=== PATIENT | female | born 1950 | race Caucasian/White ===

== ENCOUNTER 2020-03-09 09:04 | Outpatient (CLI) | payer MEDICARE, BC, SELFPAY ==
--- NOTE | 2020-03-09 11:30 | NEURO_ITS ---
Impression: # Non-diabetic complains of numbness of feet # Poor/no sensory responses. # Right posterior tibial nerve no responses. # Left posterior tibial nerve poor responses with slowing. # Absent right tibial F-wave. # Abnormal needle/EMG exam. # Findings suggestive of higher involvement in addition to right posterior tibial neuropathy. Nerve Conduction Studies Anti Sensory Summary Table Stim Site NR Peak (ms) P-T Amp (?V) Site1 Site2 Delta-P (ms) Dist (cm) Christo (m/s) Left Sup Fibular Anti Sensory (Ant Lat Mall) NO RESPONSE 14 cm NR 14 cm Ant Lat Mall 16.0 Right Sup Fibular Anti Sensory (Ant Lat Mall) NO RESPONSE 14 cm NR 14 cm Ant Lat Mall 16.0 Left Sural Anti Sensory (Lat Mall) Calf 3.9 16.4 Calf Lat Mall 3.9 16.0 41 Right Sural Anti Sensory (Lat Mall) NO RESPONSE Calf NR Calf Lat Mall 16.0 Motor Summary Table Stim Site NR Onset (ms) O-P Amp (mV) Site1 Site2 Delta-0 (ms) Dist (cm) Christo (m/s) Left Peroneal Motor (Vastus Med) Ankle 6.1 2.3 Popit Ankle 8.8 35.0 40 Popit 14.9 1.2 Right Peroneal Motor (Vastus Med) Ankle 5.9 1.2 Popit Ankle 7.9 38.0 48 Popit 13.8 1.1 Left Tibial Motor (Abd Muñoz Brev) Ankle 6.0 1.4 Knee Ankle 10.5 40.0 38 Knee 16.5 0.2 Right Tibial Motor (Abd Muñoz Brev) NO RESPONSE Ankle NR Knee NR F Wave Studies NR F-Lat (ms) L-R F-Lat (ms) Left Peroneal (Mrkrs) (EDB) 55.78 0.49 Right Peroneal (Mrkrs) (EDB) 55.29 0.49 Left Tibial (Mrkrs) (Abd Hallucis) 56.72 Right Tibial (Mrkrs) (Abd Hallucis) NO RESPONSE NR EMG Side Muscle Nerve Root Ins Act Fibs Amp Dur Recrt Comment Right AntTibialis Dp Br Fibular L4-5 Nml Nml Nml >12ms Reduced Right Gastroc Tibial S1-2 Nml Nml Nml >12ms Reduced Right Fibularis Long Sup Br Fibular L5-S1 Nml Nml Nml Nml Nml Right Flex Dig Long Tibial L5-S2 Nml Nml Nml Nml Nml Right Ext Dig Brev Dp Br Fibular L5, S1 Nml Nml Nml >12ms Reduced Left AntTibialis Dp Br Fibular L4-5 Nml Nml Nml >12ms Reduced Left Gastroc Tibial S1-2 Nml Nml Nml Nml Nml Left Fibularis Long Sup Br Fibular L5-S1 Nml Nml Nml Nml Nml Left Flex Dig Long Tibial L5-S2 Nml Nml Nml Nml Nml Left Ext Dig Brev Dp Br Fibular L5, S1 Nml Nml Nml >12ms Reduced MTDD
== END 2020-03-09 09:05 | disposition home or self-care (01) ==
PROVIDERS: PCP Internal Medicine; Visit Provider Internal Medicine
DX: M79.673 Pain in unspecified foot (principal); R94.131 Abnormal electromyogram [EMG]
CPT/HCPCS: 95886; 95910

== ENCOUNTER 2021-08-11 12:30 | Outpatient (CLI) | payer MEDICARE, BC, SELFPAY ==
--- NOTE | ~2021-08-11 | MR_ITS ---
EXAMINATION: MR lumbar spine wo con DATE: 08/11/2021 13:33 INDICATION: Lumbar radiculopathy. TECHNIQUE: Magnetic resonance imaging (MRI) of the lumbar spine was performed without intravenous con trast. Sequences included sagittal T2-weighted FSE, sagittal T2-weighted FS FSE, sagittal T1-weighted FSE, and axial T2-weighted FSE. COMPARISON: Lumbar spine MRI 10/21/2016 FINDINGS: There is 10 degrees levoscoliosis of thoracolumbar spine. There is 6 mm anterolisthesis of L4 on L5 and 3 mm retrolisthesis of L5 on S1. Vertebral body heights are normal. There is mildly decr eased disc height at L2-L3 and L3-L4. There is severely decreased disc height at L4-L5 and L5-S1 with endplate remodeling. The distal spinal cord signal intensity is normal. The conus medullaris is at L 1. The following disc levels are specifically discussed: L1-L2: The disc does not extend beyond the endplate margin. There is moderate right and severe left f acet joint osteoarthritis. There is no neural foraminal stenosis. There is no central canal stenosis. L2-L3: The disc is bulging. There is moderate right and severe left facet joint osteoarthritis. There is mild bilateral neural foraminal stenosis. There is mild central canal stenosis. L3-L4: The disc is bulging. There is severe bilateral facet joint osteoarthritis. There is mild bilat eral neural foraminal stenosis. There is mild central canal stenosis. L4-L5: The disc is bulging and has an annular fissure. There is severe bilateral facet joint osteoart hritis. There is mild right and moderate left neural foraminal stenosis. There is severe central jamie l stenosis. L5-S1: The disc is bulging and has an annular fissure. There is mild right and moderate left facet hillary int osteoarthritis. There is mild right and moderate left neural foraminal stenosis. There is mild ce ntral canal stenosis. IMPRESSION: 1. Severe lumbar spondylosis, worsened from 10/21/2016. 2. Thoracolumbar levoscoliosis. Reviewed, dictated and finalized at location A.
[2021-08-11 14:15] LABS: Basophils Percent Auto 0.3 % (0.2-1.2); Eosinophils Absolute Auto 0.1 K/mm3 (0-0.3); Eosinophils Percent Auto 1.7 % (0-4.4); Hematocrit 37.4 % (37.0-47.0); Hemoglobin 12.2 g/dL (12.0-15.0); Immature Granulocyte Absolute 0.02 K/mm3 (0.00-0.031); Immature Granulocyte Percent A 0.3 % (0-0.5); Lymphocytes Absolute Auto 1.11 K/mm3 (0.9-3.2); Lymphocytes Percent Auto 19.1 % (18.3-44.2); Mean Corpuscular HGB Conc 32.6 g/dl (32-36); Mean Corpuscular Hemoglobin 31.7 pg (26-34); Mean Corpuscular Volume 97.1 fl (80-100); Mean Platelet Volume 11.2 fl (7.4-10.4); Monocytes Absolute Auto 0.5 K/mm3 (0.1-0.6); Monocytes Percent Auto 8.3 % (2.6-8.5); Neutrophils Absolute Auto 4.1 K/mm3 (1.3-6.7); Neutrophils Percent Auto 70.3 % (45.5-73.1); Platelet Count Result 209 k/mm3 (150-375); Red Blood Count 3.85 M/mm3 (4.2-5.4); Red Cell Distribution Width 13.3 % (11.5-14.5); White Blood Count 5.8 K/mm3 (4.5-10.0)
[2021-08-11 14:24] LABS: Alanine Aminotransferase 43 U/L (6-35); Albumin Level 4.5 g/dL (3.5-5.1); Alkaline Phosphatase 84 U/L (38-126); Anion Gap 8 mmol/L (8-16); Aspartate Amino Transferase 38 U/L (14-36); Bilirubin,Total 0.2 mg/dL (0.2-1.3); Blood Urea Nitrogen 15 mg/dL (7-17); Calcium 9.1 mg/dL (8.4-10.2); Carbon Dioxide 30 mmol/L (22-30); Chloride 100 mmol/L (98-107); Cholesterol 189 mg/dL (0-200); Estimated Glomerular Filt Rate > 60; Glucose 114 mg/dL (65-110); HDL Direct 32 mg/dL; Magnesium 1.9 mg/dL (1.6-2.3); Potassium 4.1 mmol/L (3.4-5.0); Sodium 138 mmol/L (137-145); Triglycerides 263 mg/dL (<150)
[2021-08-11 14:35] LABS: LDL Cholesterol Direct 110 mg/dL
[2021-08-11 15:34] LABS: Folic Acid > 20.0 ng/mL (2.76->20)
[2021-08-11 16:18] LABS: Vitamin D 25 Hydroxy 24.6 ng/mL
== END 2021-08-11 12:31 | disposition home or self-care (01) ==
PROVIDERS: PCP Internal Medicine; Visit Provider Physician Assistant
DX: E55.9 Vitamin D deficiency, unspecified (principal); R53.83 Other fatigue; R73.9 Hyperglycemia, unspecified; R74.8 Abnormal levels of other serum enzymes; R20.0 Anesthesia of skin; R29.6 Repeated falls; R32 Unspecified urinary incontinence; M47.26 Other spondylosis with radiculopathy, lumbar region
CPT/HCPCS: 36415; 72148; 80053; 80061; 82306; 82607; 82746; 83735; 84443; 85025

== ENCOUNTER 2021-11-16 12:36 | Outpatient (CLI) | payer MEDICARE, BC, SELFPAY ==
--- NOTE | ~2021-11-16 | XR_ITS ---
XR lumbar spine min 4V 11/16/2021 13:36 Indication: Back pain Procedure: 4 views lumbar spine Comparison: 09/26/2016 Findings: There is mild levoscoliosis of the thoracolumbar spine. There is disc narrowing at all lumb ar levels. There is grade 1 degenerative spondylolisthesis at L4-5. There is advanced multilevel face t hypertrophy. No acute fracture or traumatic malalignment. There is atherosclerosis of the aorta. Impression: 1: Severe lumbar spondylosis with levoscoliosis. 2: Grade 1 degenerative spondylolisthesis at L4-5. Reviewed, dictated and finalized at location B. Impression: 1: Severe lumbar spondylosis with levoscoliosis. 2: Grade 1 degenerative spondylolisthesis at L4-5.
--- NOTE | ~2021-11-16 | XR_ITS ---
EXAMINATION: XR scoliosis survey DATE: 11/16/2021 13:36 INDICATION: Spinal stenosis, lumbar region without neurogenic claudication. TECHNIQUE: Anteroposterior and lateral views of the entire spine standing were obtained. COMPARISON: None. FINDINGS: Right femoral head stands 4 mm higher than left. There are 12 rib-bearing thoracic segments . There are 5 nonrib-bearing lumbar segments. There is 19 degrees levoscoliosis from T7 to L3 by the Mata method. There is 2 mm retrolisthesis of C5 on C6. There is severe cervical and lumbar spondylosi s and mild thoracic spondylosis. IMPRESSION: 1. 19 degrees levoscoliosis from T7 to L3. Reviewed, dictated and finalized at location A.
--- NOTE | ~2021-11-16 | CT_ITS ---
EXAMINATION: CT lumbar spine wo con DATE: 11/16/2021 13:54 INDICATION: Back pain. Spinal stenosis. TECHNIQUE: Computed tomography (CT) of the lumbar spine was performed without intravenous contrast. A utomated exposure control and iterative reconstruction technique were employed. The dose-length produ ct was 1177.23 mGy-cm. COMPARISON: Lumbar spine MRI 08/11/2021 FINDINGS: There is 13 degrees levoscoliosis of thoracolumbar spine. There is 8 mm anterolisthesis of L4 on L5 and 3 mm retrolisthesis of L5 on S1. Vertebral body heights are normal. There is mildly decr eased disc height at L2-L3 and L3-L4 and severely decreased disc height at L4-L5 and L5-S1. The follo wing disc levels are specifically discussed: L1-L2: The disc does not extend beyond the endplate margin. There is severe bilateral facet joint ost eoarthritis. There is no neural foraminal stenosis. There is no central canal stenosis. L2-L3: The disc is bulging. There is moderate right and severe left facet joint osteoarthritis. There is mild bilateral neural foraminal stenosis. There is mild central canal stenosis. L3-L4: The disc is bulging. There is severe bilateral facet joint osteoarthritis. There is mild bilat eral neural foraminal stenosis. There is mild central canal stenosis. L4-L5: The disc is bulging. There is severe bilateral facet joint osteoarthritis. There is moderate b ilateral neural foraminal stenosis. There is severe central canal stenosis. L5-S1: The disc is bulging. There is mild right and moderate left facet joint osteoarthritis. There i s mild right and moderate left neural foraminal stenosis. There is mild central canal stenosis. IMPRESSION: 1. Severe lumbar spondylosis. 2. Thoracolumbar levoscoliosis. Reviewed, dictated and finalized at location A.
== END 2021-11-16 12:37 | disposition home or self-care (01) ==
PROVIDERS: PCP Internal Medicine; Visit Provider Neurological Surgery
DX: M48.061 Spinal stenosis, lumbar region without neurogenic claudication (principal); M47.896 Other spondylosis, lumbar region
CPT/HCPCS: 36415; 72082; 72110; 72131; 82306

== ENCOUNTER 2022-01-24 12:56 | Outpatient (CLI) | payer MEDICARE, BC, SELFPAY ==
--- NOTE | ~2022-01-24 | DEXA_ITS ---
Bone Density Report Name: NAOMIE GIRON Age: 71 Sex: Female Ethnicity: White Date of : 1950 Indication: postmenopausal; screening for osteoporosis; hysterectomy; rheumatoid arthritis; Referring Provider: SOL FLORIAN Study: Bone densitometry was performed. Exam Date: January 24, 2022 Accession number: [id number] Bone Density: Region BMD T-score Z-score Classification AP Spine(L1-L4) 1.392 3.1 5.4 Normal Femoral Neck (Left) 0.867 0.2 2.1 Normal Total Hip (Left) 1.161 1.8 3.5 Normal Femoral Neck (Right) 0.861 0.1 2.1 Normal Total Hip (Right) 1.069 1.0 2.7 Normal Total Hip Mean 1.115 1.4 3.1 Normal World Health Organization criteria for BMD impression classify patients as: Normal (T-score at or above -1.0), Osteopenia (T-score between -1.0 and -2.5), or Osteoporosis (T-score at or below -2.5). 10-year Fracture Risk: FRAX not reported because: All T-scores for Spine Total, Hip Total, Femoral Neck at or above -1.0 Clinical Information Provided by Patient: Has rheumatoid arthritis Has the following medical conditions: Hysterectomy, copd Patient maximum height was 62 Menopause Age: 32 No regular weight bearing exercise Onset of menses at age 12 Number of children 3 Impression: The patient has normal bone mass. Discussion: LOW RISK OF FRACTURE; BONE DENSITY IS WELL ABOVE THE MINIMUM DESIRABLE LEVEL AND ABOVE AVERAGE FOR AGE AND SEX AT ALL SKELETAL SITES TESTED. This person's bone density is above expected limits for age and sex. This is rarely clinically significant, but should be pursued if there are significant musculoskeletal complaints. The patient should follow a healthful lifestyle (good nutrition with adequate calcium and vitamin D, and appropriate weight-bearing exercise). Follow-Up: Consider repeating this study in 5 years or sooner if there is some new clinical indication. Reported by: [facility] on 01/24/2022 1:20:00 PM. Reviewed, dictated and finalized at location AAnthony KOHLI
== END 2022-01-24 12:57 | disposition home or self-care (01) ==
LOC: ANHIMG 12:59
PROVIDERS: PCP Internal Medicine; Visit Provider Neurological Surgery
DX: Z78.0 Asymptomatic menopausal state (principal)
CPT/HCPCS: 77080

== ENCOUNTER 2022-07-12 10:02 | Outpatient (CLI) | payer MEDICARE, BC, SELFPAY ==
--- NOTE | ~2022-07-12 | NM_ITS ---
EXAMINATION: NM vita stress w perfusion DATE: 07/12/2022 12:54 INDICATION: Abnormal electrocardiogram. Preop. TECHNIQUE: Rest images were obtained following intravenous administration of 9.4 mCi Tc99m tetrofosmi n (Myoview). The patient was infused intravenously with Lexiscan (regadenoson). Then, 29.4 mCi Tc99m tetrofosmin (Myoview) was administered intravenously, and stress images were obtained. Data was recon structed into short axis and horizontal and vertical long axis SPECT images. Gated SPECT images were also obtained. COMPARISON: None. FINDINGS: There is no definite reversible or fixed perfusion abnormality to suggest ischemia or infar ction. There is no segmental wall motion abnormality. Left ventricular ejection fraction measures > 70%. IMPRESSION: 1. No definite ischemia or infarct. 2. Normal left ventricular ejection fraction measuring > 70%. Reviewed, dictated and finalized at location A.
--- NOTE | 2022-07-12 10:39 | EST_ITS ---
Patient Info Name: Divina Griffiths Age: 72 years : 1950 Gender: Female Ht: 62 in Wt: 211 lbs BSA: 2.10 m2 HR: 59 bpm BP: 157 / 67 mmHg Heart Rhythm: Sinus Rhythm Exam Date: 07/12/2022 11:29 AM Exam Location: [facility] Stress Patient Status: Outpatient Admit Date: 07/12/2022 Staff Ordering Physician: Sandip Brown DO Attending Provider: Favian Coffman MD Exercise Technologist: Faye Larson CT Exam Type: CA stress vita w NM Study Info Indications Z01.810 - Encounter for preprocedural cardiovascular examination A regadenoson stress test was performed. Summary 1. 1. Negative lexiscan stress test for ischemic ST changes by ECG criteria. 2. 2. Baseline hypertension. 3. 3. Nuclear scan to follow and will be reported separately. Please correlate with it. 4. 4. Patient informed of the above results. Protocol: Lexiscan Stress ECG Details Stage: REST Duration (min): 1 min : 17 sec HR (bpm): 60 SBP (mmHg): 157 DBP (mmHg): 67 Stage: REST Duration (min): 17 min : 22 sec HR (bpm): 60 SBP (mmHg): 157 DBP (mmHg): 67 Stage: STAGE 1 Duration (min): 1 min : 0 sec HR (bpm): 77 SBP (mmHg): 146 DBP (mmHg): 75 Stage: RECOVERY Duration (min): 1 min : 0 sec HR (bpm): 87 SBP (mmHg): 146 DBP (mmHg): 75 Stage: RECOVERY Duration (min): 2 min : 0 sec HR (bpm): 86 SBP (mmHg): 146 DBP (mmHg): 75 Stage: RECOVERY Duration (min): 3 min : 0 sec HR (bpm): 81 SBP (mmHg): 176 DBP (mmHg): 71 Stage: RECOVERY Duration (min): 3 min : 26 sec HR (bpm): 80 SBP (mmHg): 176 DBP (mmHg): 71 Rest HR: 60 bpm Peak HR: 88 bpm Rest Sys BP: 157 mmHg Peak Sys BP: 176 mmHg Max Pred HR: 147 bpm % Max Pred HR: 60 % Target HR: 125 bpm Max RPP: 15,488 bpm*mmHg Termination Reason: Completed protocol Cardiac Symptoms: Shortness of breath Total Time: 1 min : 0 sec Rest Caldwell BP: 67 mmHg Peak Caldwell BP: 71 mmHg Total Dose: 0.4 mg Resting ECG Sinus rhythm, RBBB. Stress ECG No ST changes. Arrhythmias None. Report Signatures
--- NOTE | 2022-07-12 11:53 | ECG_ITS ---
Measurements Intervals [place] Rate: 64 P: 7 PA: 200 QRS: 45 QRSD: 129 T: 42 QT: 393 QTc: 406 Interpretive Statements SINUS RHYTHM BASELINE ARTIFACT LOW-VOLTAGE QRS IN PRECORDIAL LEADS RIGHT BUNDLE BRANCH BLOCK ABNORMAL ECG NO PREVIOUS ECG AVAILABLE FOR COMPARISON Electronically Signed On 07-13-2022 16:22:18 CDT by Olman Hirsch M.D.
[2022-07-12 13:19] LABS: Basophils Percent Auto 0.5 % (0.2-1.2); Eosinophils Absolute Auto 0.1 K/mm3 (0-0.3); Eosinophils Percent Auto 0.8 % (0-4.4); Hematocrit 39.6 % (37.0-47.0); Hemoglobin 12.7 g/dL (12.0-15.0); Immature Granulocyte Absolute 0.03 K/mm3 (0.00-0.031); Immature Granulocyte Percent A 0.5 % (0-0.5); Lymphocytes Absolute Auto 1.26 K/mm3 (0.9-3.2); Lymphocytes Percent Auto 21.1 % (18.3-44.2); Mean Corpuscular HGB Conc 32.1 g/dl (32-36); Mean Corpuscular Hemoglobin 31.8 pg (26-34); Mean Platelet Volume 10.7 fl (7.4-10.4); Monocytes Absolute Auto 0.4 K/mm3 (0.1-0.6); Monocytes Percent Auto 7.4 % (2.6-8.5); Neutrophils Absolute Auto 4.2 K/mm3 (1.3-6.7); Neutrophils Percent Auto 69.7 % (45.5-73.1); Platelet Count Result 204 k/mm3 (150-375); Red Cell Distribution Width 12.3 % (11.5-14.5)
[2022-07-12 13:29] LABS: Anion Gap 9 mmol/L (8-16); Blood Urea Nitrogen 20 mg/dL (7-17); Calcium 9.2 mg/dL (8.4-10.2); Carbon Dioxide 27 mmol/L (22-30); Chloride 103 mmol/L (98-107); Estimated Glomerular Filt Rate > 60; Glucose 117 mg/dL (65-110); Potassium 4.4 mmol/L (3.4-5.0); Sodium 139 mmol/L (137-145)
== END 2022-07-12 10:03 | disposition home or self-care (01) ==
PROVIDERS: PCP Internal Medicine; Visit Provider Neurological Surgery
DX: Z01.810 Encounter for preprocedural cardiovascular examination (principal); M43.16 Spondylolisthesis, lumbar region; M48.062 Spinal stenosis, lumbar region with neurogenic claudication; J44.9 Chronic obstructive pulmonary disease, unspecified; R82.90 Unspecified abnormal findings in urine; I45.10 Unspecified right bundle-branch block; I10 Essential (primary) hypertension; Z79.1 Long term (current) use of non-steroidal anti-inflammatories (NSAID)
CPT/HCPCS: 36415; 78452; 80048; 85025; 86850; 86900; 86901; 93005; 93017; A9502; J2785

== ENCOUNTER 2022-07-27 12:59 | Outpatient (CLI) | payer MEDICARE, BC, SELFPAY ==
[2022-07-27 13:46] LABS: Appearance Urine Turbid (Clear); Bacteria Urine 4+ /hpf; Bilirubin Urine Negative (Negative); Blood Urine 1+ (Negative); Color Urine Yellow (Yellow); Glucose Urine UA Negative (Negative); Ketones Urine Negative (Negative); Leukocyte Esterase Ur 3+ LEU/UL (Negative); Nitrate Urine Positive (Negative); Non Pathogenic Casts 0-2; Protein Urine Negative (Negative); RBC Urine 0-2 /hpf (0-2); Specific Grav Ur 1.012 (1.001-1.035); Squamous Epithelial Cell Urine Occasional /hpf (Few); Urobilinogen Urine 0.2 mg/dL (<2.0); WBC Urine >100 /hpf; pH Urine 5.5 (5.0-9.0)
[2022-07-27 13:48] LABS: Add Urine Microscopic? YES; Prothrombin Time 13.3 Seconds (11.1-14.7)
[2022-07-27 13:49] LABS: Partial Thromboplastin Time 29.9 SECONDS (22.3-36.8)
== END 2022-07-27 13:00 | disposition home or self-care (01) ==
LOC: ANHSURGERY 13:04
PROVIDERS: PCP Internal Medicine; Visit Provider Neurological Surgery
DX: M48.062 Spinal stenosis, lumbar region with neurogenic claudication (principal); Z01.818 Encounter for other preprocedural examination
CPT/HCPCS: 36415; 81001; 85610; 85730; 86850; 86900; 86901; 87077; 87086; 87186

== ENCOUNTER 2022-07-31 12:44 | Inpatient (IN) | payer MEDICARE, BC, SELFPAY ==
[2022-07-25 13:29] VITALS: BMI 38.8
--- NOTE | 2022-07-25 13:46 | PC.NURSE ---
PRE-OP INSTRUCTIONS, PLEASE READ CAREFULLY Report to the Outpatient Waiting Room, entrance under the green pavilion located off [facility], at time _0600_ on date _07/31/22_. Planned Procedure Time: _0800_. PACK A SMALL OVERNIGHT BAG AND LEAVE IN THE CAR Time changes happen often and if your time is changed the preop area will call you the afternoon before. - You and your visitor will be asked to self-screen and do not enter if you have any COVID symptoms. - A mask is optional within the hospital at this time. -VISITING HOURS 8AM-8PM Patients may have clear liquids (water, carbonated beverages, clear teas, apple juice) until 3 hours prior to surgery (0500 AM) with a maximum of 20 ounces. - No food from midnight until time of surgery Take the following medications with a SIP of water the morning of surgery: _VENLAFAXINE, PAIN PILL IF NEEDED_ DO NOT STOP ANY OF YOUR OTHER PRESCRIPTION MEDICATIONS PRIOR TO SURGERY ?EXCEPT THE FOLLOWING Medications to discontinue _PATIENT STATES STOPPING ASPIRIN & IBUPROFEN 07/21/[address] TYLER'S INSTRUCTIONS__ Medications to discontinue per ANESTHESIA - _BIO-X4 3 DAYS PRIOR TO SURGERY, Date to take last dose 07/27/22_ Please no make-up, nail norwegian, hairspray, perfume, deodorant, or body powder the day of surgery. No jewelry (including any body piercings) or valuables the day of surgery, leave them at home. Please take a shower or bath the night before, or the morning of, surgery with an antibacterial soap. Wear comfortable, loose fitting clothing. - Jewelry must be removed prior to entering the operating room. Rings and piercings that are not removed may be cut off. - The hospital will not accept responsibility for valuables. - Please leave all valuables, including medications, at home the day of surgery. If you are going home after surgery, a licensed lead driver must drive you home. - NO public transportation without another adult if you receive anesthesia. - We recommend that an adult stay with you for 24 hours following discharge. - We also recommend that you do not drive, make important decision, drink alcoholic beverages, or take any drugs that were not prescribed by your health care provider for at least 24 hours after your discharge time. Follow any additional instructions given to you from your surgeon. If you or anyone in your household have experienced Covid symptoms in the past week, please notify your surgeon or the nurse liaison at the phone number below for possible testing. Telephone instructions given to _PATIENT_and asked if any additional questions and then verbalized understanding. Patient advised to call surgeon office or pre surgery nurse liaison [phone] if any additional questions.
[2022-07-31] VITALS (10 sets, daily range): BP systolic 102–149; BP diastolic 40–63; PULSE 75–104; RESP 12–18; TEMP 36.1–36.7; O2SAT 91–100
--- NOTE | ~2022-07-31 | XR_ITS ---
EXAMINATION: XR fluoroscopy no charge DATE: 07/31/2022 11:44 INDICATION: L4-L5 posterior lumbar fusion and L3-L4 laminectomy TECHNIQUE: 2 fluoroscopic images of the lower lumbar spine were obtained during procedure performed brinda Coffman. Radiologist was not present for the imaging or procedure. The amount of fluoroscopy t dory used during this procedure was 0.1 minutes. COMPARISON: CT dated 11/13/2021 FINDINGS: Again seen is grade 1 anterolisthesis L4 on L5 with moderate to severe disc height loss with vacuum p henomena at both L4-L5 and L5-S1 on the initial image. Lucent likely surgical wound with tissue retra ctors, lap sponge markers and a metallic probe projects posterior to the lower lumbar spine. Subseque nt image demonstrates L4-L5 discectomy with partial reduction of the anterolisthesis of L4 on L5 and placement of an interbody bone graft cage. There is also been posterior spinal fusion with vertical r od and pedicle screw fixation spanning L4-L5. There is penetration of the region of the spinous proce sses resulting from the surgical wound and unable to assess for the reported associated laminectomy. IMPRESSION: 1. Fluoroscopy utilized during combined instrumented L4-L5 anterior and posterior spinal fusion. See procedure note for further detail. Reviewed, dictated and finalized at location L. IMPRESSION: 1. Fluoroscopy utilized during combined instrumented L4-L5 anterior and posteri or spinal fusion. See procedure note for further detail.
--- NOTE | 2022-07-31 07:04 | WPDANESEPPF ---
Anes - Initial Pre Proc Eval Procedure: Operation Date: 07/31/22 08:00 Proposed Procedures p L4-5 Posterior Lateral Instrumentation Fusion, L3-4 Laminectomy - Favian Coffman MD Date/Time: 07/31/22 07:04 Surgeon: Favian Coffman MD Pre Op Diagnosis: spondylolisthesis L4-5, L3-4 stenosis Patient Data Age: 72 Gender: F Height: 1.57 m Weight: 96.36 kg Allergies Allergy/AdvReac Type Severity Reaction Status Date / Time levocetirizine Allergy Intermediate pain in Verified 07/31/22 06:26 head Sulfa (Sulfonamide Allergy Mild hives Verified 07/31/22 06:26 Antibiotics) sulfanilamide Allergy Mild Hives Verified 07/31/22 06:26 Home Medications Medication Instructions Recorded Confirmed Type aspirin 81 mg tablet,delayed 81 mg PO DAILY 05/12/19 07/25/22 History release (Adult Low Dose Aspirin) fluticasone propionate 50 2 spray intranasal DAILY PRN nasal 02/02/20 07/25/22 Rx mcg/actuation nasal congestion #15.8 mL spray,suspension cyclobenzaprine 10 mg tablet 10 mg PO .hs PRN muscle spasm #30 08/23/21 07/25/22 Rx tabs hydrocodone 5 mg-acetaminophen 325 1 tablet PO Q12H PRN pain #46 tabs 02/06/22 07/31/22 Rx mg tablet bisoprolol 10 1 tablet PO DAILY #90 tabs 04/30/22 07/25/22 Rx mg-hydrochlorothiazide 6.25 mg tablet lisinopril 40 mg tablet 40 mg PO DAILY #90 tabs 04/30/22 07/31/22 Rx venlafaxine 150 mg tablet,extended 150 mg PO DAILY #30 tabs 04/30/22 07/31/22 Rx release 24 hr ibuprofen 800 mg tablet 800 mg PO BID PRN pain #90 tabs 05/16/22 07/25/22 Rx folic acid 1 mg tablet 1 mg PO DAILY #90 tabs 06/24/22 07/31/22 Rx gabapentin 300 mg capsule 300 mg PO .hs #90 caps 07/10/22 07/31/22 Rx Bio-X4 1 cap DAILY 07/25/22 History omeprazole magnesium 20 mg 20 mg PO BID PRN ACID REFLEX 07/25/22 07/31/22 History capsule,delayed release sulfamethoxazole 400 1 tablet PO BID #10 tabs 07/30/22 Rx mg-trimethoprim 80 mg tablet (Bactrim) Patient hx anesthesia problems: post op nausea/vomiting Family hx anesthesia problems: post op nausea/vomiting Results Review: All pre-operative results and documents have been reviewed as part of the pre-operative evaluation. COUNT INCLUDES THE [facility] Past Medical History Medical History Arthritis of both knees Chronic midline low back pain with right-sided sciatica Dizziness DUNNE (dyspnea on exertion) Essential (primary) hypertension Folate deficiency Other allergic rhinitis Primary osteoarthritis of both knees Primary osteoarthritis of left knee Surgical History Surgical History H/O hemorrhoidectomy H/O pelvic surgery H/O rhinoplasty H/O: hysterectomy History of back surgery Hx of appendectomy Hx of cholecystectomy Hx of tonsillectomy S/P adenoidectomy Family History Family History Father Hypertension Family history of Alzheimer's disease Patient's father is Mother Hypertension Patient's mother is in good health Sibling Hypertension Asthma Patient's brother is in good health Other Cerebrovascular accident Family history of allergic disorder Family history of arthritis Social History Social History Smoking packs per day: 1.5 Smoking cigarettes per day: 30.0 Years smoked: 50 Smoking pack-years: 75.00 Smoking status: Former smoker Tobacco type: cigarettes Second hand tobacco smoke exposure: No Smoking end date: 04/01/15 Alcohol intake: never Substance use: never Substance use type: does not use Lack of Transportation: No Lack of Food: Never True Current Housing: I Have Housing Concerned About Future Housing: No Difficulty Paying Gas/Electric Bills: No Difficulty Paying for Meds: No Currently Unemployed: No Education: High School Diplo
[2022-07-31] MEDS: LACTATED RINGERS 1,000 ML 30 ML IV CONT ×2 (07:07→11:46)
[2022-07-31] MEDS: ONDANSETRON INJ 4 MG/2 ML VIAL IV PUSH ×3 (07:15→20:49)
--- NOTE | 2022-07-31 07:41 | PM.IMHP ---
H&P: HPI History of Present Illness Date/Time: 07/31/22 07:41 Chief Complaint: Back and leg pain Narrative: Divina is a 72-year-old female with back and leg pain related to stenosis and spondylolisthesis presents for L4-5 posterior lumbar interbody fusion L3-4 laminectomy. She has not changed appreciably since we last saw her. She does not have specific muscle group weakness or dermatomal numbness. She is not having bowel or bladder difficulty. Review of Systems Review of Systems: Patient denies shortness of breath, cough, fever, chills, nausea, vomiting, weight loss, weight gain, chest pain, dysuria. She has back and leg pain as above. Review of systems otherwise negative on 12 systems except as noted elsewhere. [facility] Past Medical History Medical History Arthritis of both knees Chronic midline low back pain with right-sided sciatica Dizziness DUNNE (dyspnea on exertion) Essential (primary) hypertension Folate deficiency Other allergic rhinitis Primary osteoarthritis of both knees Primary osteoarthritis of left knee Surgical History Surgical History H/O hemorrhoidectomy H/O pelvic surgery H/O rhinoplasty H/O: hysterectomy History of back surgery Hx of appendectomy Hx of cholecystectomy Hx of tonsillectomy S/P adenoidectomy Family History Family History Father Hypertension Family history of Alzheimer's disease Patient's father is Mother Hypertension Patient's mother is in good health Sibling Hypertension Asthma Patient's brother is in good health Other Cerebrovascular accident Family history of allergic disorder Family history of arthritis Social History Social History Smoking packs per day: 1.5 Smoking cigarettes per day: 30.0 Years smoked: 50 Smoking pack-years: 75.00 Smoking status: Former smoker Tobacco type: cigarettes Second hand tobacco smoke exposure: No Smoking end date: 04/01/15 Alcohol intake: never Substance use: never Substance use type: does not use Lack of Transportation: No Lack of Food: Never True Current Housing: I Have Housing Concerned About Future Housing: No Difficulty Paying Gas/Electric Bills: No Difficulty Paying for Meds: No Currently Unemployed: No Education: High School Diploma/GED Difficulty w/ Childcare or Family Care: No Living arrangements: with family Spiritual care concerns: No Meds Home Medications and Allergies Home Medications Medication Instructions Recorded Confirmed Type aspirin 81 mg tablet,delayed 81 mg PO DAILY 05/12/19 07/25/22 History release (Adult Low Dose Aspirin) fluticasone propionate 50 2 spray intranasal DAILY PRN nasal 02/02/20 07/25/22 Rx mcg/actuation nasal congestion #15.8 mL spray,suspension cyclobenzaprine 10 mg tablet 10 mg PO .hs PRN muscle spasm #30 08/23/21 07/25/22 Rx tabs hydrocodone 5 mg-acetaminophen 325 1 tablet PO Q12H PRN pain #46 tabs 02/06/22 07/31/22 Rx mg tablet bisoprolol 10 1 tablet PO DAILY #90 tabs 04/30/22 07/25/22 Rx mg-hydrochlorothiazide 6.25 mg tablet lisinopril 40 mg tablet 40 mg PO DAILY #90 tabs 04/30/22 07/31/22 Rx venlafaxine 150 mg tablet,extended 150 mg PO DAILY #30 tabs 04/30/22 07/31/22 Rx release 24 hr ibuprofen 800 mg tablet 800 mg PO BID PRN pain #90 tabs 05/16/22 07/25/22 Rx folic acid 1 mg tablet 1 mg PO DAILY #90 tabs 06/24/22 07/31/22 Rx gabapentin 300 mg capsule 300 mg PO .hs #90 caps 07/10/22 07/31/22 Rx Bio-X4 1 cap DAILY 07/25/22 History omeprazole magnesium 20 mg 20 mg PO BID PRN ACID REFLEX 07/25/22 07/31/22 History capsule,delayed release sulfamethoxazole 400 1 tablet PO BID #10 tabs 07/30/22 Rx mg-trimethoprim 80 mg tablet (Bactrim)
--- NOTE | 2022-07-31 07:46 | WPDHPUPDATE1 ---
History and Physical Update Update Date/Time: 07/31/22 07:46 History and Physical has been reviewed, including an updated exam of the patient. There are NO changes in the patient's condition. Risks, benefits, and alternatives have been discussed and questions answered. Patient agrees to proceed with procedure.
[2022-07-31] MEDS: ceFAZolin 2 GM/D5W 50 ML 2 GM/50 ML BAG IVPB (08:25)
[2022-07-31] MEDS: LIDO 1%/EPINEPHRINE 1:100,000 50 ML VIAL 10 ML INFILTRATE (09:19)
--- NOTE | 2022-07-31 11:44 | SUR.OPER ---
150mL of clear yellow urine drained from fregoso catheter in OR
--- NOTE | 2022-07-31 12:56 | ADMGEN ---
This patient, Divina Griffiths, was admitted to Medical Room 253-01. Patient/family oriented to hospital policies and general routines including ID bracelet, bed and alarms, visiting hours, pain management, procedures, bathroom and other care routines, personal items, smoking policy, room service/diet, and visiting hours. Information on how to activate the Rapid Response Team has been discussed. Patient/Family are encouraged to report perceived risks to care and to ask questions if they do not understand what they are told or what they should do.
[2022-07-31] MEDS: HYDROmorphone HCL INJ (*CRX) 1 MG/ML SYR 0.5 MG IV PUSH (15:18)
[2022-07-31] MEDS: ceFAZolin 1 GM/NS 50 ML 1 GM/50 ML BAG IVPB ×2 (16:00→23:00)
[2022-07-31] MEDS: GABAPENTIN 300 MG CAPSULE PO (20:53)
[2022-07-31] MEDS: DOCUSATE SODIUM 100 MG CAPSULE PO (20:53)
[2022-07-31] MEDS: CYCLOBENZAPRINE HCL 10 MG TABLET PO (20:53)
[2022-07-31] MEDS: HYDROcodone/acetaminophen (*CRX) 5-325 MG TABLET 1 TAB PO (20:53)
[2022-08-01] MEDS: HYDROcodone/acetaminophen (*CRX) 10-325 MG TABLET 1 TAB PO ×2 (05:09→12:25)
[2022-08-01 06:30] VITALS: BP 114/43; PULSE 104; RESP 18; TEMP 36.5; O2SAT 96
[2022-08-01] MEDS: DOCUSATE SODIUM 100 MG CAPSULE PO ×2 (08:22→20:40)
[2022-08-01] MEDS: PANTOPRAZOLE 40 MG TABLET PO (08:23)
[2022-08-01] MEDS: FOLIC ACID 1 MG TABLET PO (08:23)
[2022-08-01] MEDS: ceFAZolin 1 GM/NS 50 ML 1 GM/50 ML BAG IVPB ×3 (08:23→23:11)
[2022-08-01 08:28] VITALS: BP 131/56; PULSE 99; RESP 16; O2SAT 96
[2022-08-01 08:29] VITALS: PULSE 99
[2022-08-01] MEDS: hydroCHLOROthiazide 6.25 MG TABLET PO (08:29)
[2022-08-01] MEDS: bisoproloL fumarate 5 MG TABLET 10 MG PO (08:29)
[2022-08-01] MEDS: lisinopriL 20 MG TABLET 40 MG PO (08:29)
[2022-08-01] MEDS: VENLAFAXINE HCL XR 75 MG CAP.ER.24H 150 MG PO (08:30)
[2022-08-01 09:33] VITALS: BP 108/46; PULSE 80; RESP 18; TEMP 36.1; O2SAT 96
--- NOTE | 2022-08-01 12:17 | WPDANESPN ---
Anes - Prog Note Post-Op Date/Time: 08/01/22 12:17 Vital Signs: Last Vital Signs Temp 36.1 C L 08/01/22 09:33 Pulse 80 08/01/22 09:33 Resp 18 08/01/22 09:33 BP 108/46 L 08/01/22 09:33 Pulse Ox 96 08/01/22 09:33 O2 Del Method Room Air 08/01/22 08:30 O2 Flow Rate 6 07/31/22 12:00 Pain Score (VAS): 0 I/O: Intake & Output 07/31/22 08/01/22 08/01/22 23:59 07:59 15:59 Intake Total 640 550 530 Output Total 350 1200 Balance 290 -650 530 Patient Feedback: Patient satisfied with anesthetic care.
[2022-08-01 13:13] VITALS: BP 118/46; PULSE 91; RESP 18; TEMP 36.2; O2SAT 98
[2022-08-01] MEDS: oxyCODONE/ACETAMINOPHEN (*CRX) 10-325 MG TABLET 1 TAB PO ×2 (17:00→20:39)
[2022-08-01] MEDS: CYCLOBENZAPRINE HCL 10 MG TABLET PO (17:07)
[2022-08-01 19:51] VITALS: BP 110/50; PULSE 80; RESP 16; TEMP 36.5; O2SAT 95
[2022-08-01] MEDS: GABAPENTIN 300 MG CAPSULE PO (20:40)
[2022-08-01] MEDS: MELATONIN 5 MG TABLET PO (21:02)
[2022-08-02 00:10] VITALS: BP 99/50; PULSE 81; RESP 16; TEMP 36.6; O2SAT 93
[2022-08-02 05:34] VITALS: BP 128/54; PULSE 82; RESP 16; TEMP 36.7; O2SAT 97
[2022-08-02] MEDS: oxyCODONE/ACETAMINOPHEN (*CRX) 10-325 MG TABLET 1 TAB PO ×2 (06:24→17:26)
[2022-08-02] MEDS: ceFAZolin 1 GM/NS 50 ML 1 GM/50 ML BAG IVPB ×3 (08:14→23:54)
[2022-08-02 08:16] VITALS: PULSE 78
[2022-08-02] MEDS: bisoproloL fumarate 5 MG TABLET 10 MG PO (08:16)
[2022-08-02] MEDS: VENLAFAXINE HCL XR 75 MG CAP.ER.24H 150 MG PO (08:19)
[2022-08-02] MEDS: FOLIC ACID 1 MG TABLET PO (08:19)
[2022-08-02] MEDS: lisinopriL 20 MG TABLET 40 MG PO (08:19)
[2022-08-02] MEDS: hydroCHLOROthiazide 6.25 MG TABLET PO (08:20)
[2022-08-02] MEDS: DOCUSATE SODIUM 100 MG CAPSULE PO ×2 (08:23→20:27)
--- NOTE | 2022-08-02 08:46 | PCPTNOTE ---
Attempted to see patient for PT, however patient was eating breakfast.
[2022-08-02] MEDS: polyethylene glycoL 3350 17 GM POWD.PACK PO (10:50)
--- NOTE | 2022-08-02 11:03 | W.PM.PROC2 ---
Procedure Note - Detailed Date of Procedure 08/02/22 Pre-op Diagnosis spondylolisthesis L4-5, L3-4 stenosis Post-op Diagnosis Same Procedure Performed L4-5 complete laminectomy and bilateral facetectomy, L4-5 complete diskectomy and interbody arthrodesis utilizing titanium interbody device, L4-5 pedicle screw instrumentation, L3-4 laminectomy Surgeon Favian Coffman MD Anesthesia General Description of Procedure The patient was brought to the operating room in the supine position, was sedated, intubated and placed under general anesthesia in routine fashion. She was then turned into the prone position on Isaac frame. The of operation on her back was examined, marked for incision, prepped and draped in routine sterile fashion. Incision was marked over the L3 through 5 spinous processes in the midline. This area was injected with 0.5% lidocaine with [id number] epinephrine. Intravenous antibiotics given prior to incision. Incision was made with a 10 blade scalpel down to the lumbodorsal fascia. A subperiosteal dissection of the muscle soft tissue within spinous process and lamina at L4-5 and L3-4 was performed with a subperiosteal elevator and Bovie cautery. A verifying x-rays obtained to verify the level of operation. Spinous processes at L3 and L4 were removed with a Fantasma rongeur. Kerrison punches, curved curette and a Leksell rongeur were used to remove lamina in the midline into the soft contents of the canal were encountered. L3-4 additional bone and ligament in the lateral recess was removed after a careful dissection away from the dura using a curved curette. Kerrison punches removed the tissue. Midas-Douglas drill was used to resect the pars bilaterally at L4. The inferior articular process and facet of L4 could then be removed bilaterally. These +spinous processes were stripped free of soft tissue and morselized for later use as interbody autograft. Kerrison punches and curved curettes were used to define a plane with the dura and removed bone and ligament flush with the pedicle and through the foramina widely decompressing the exiting nerve roots. Dural thinning dorsally was noted at this part of the operation and was closed primarily using a 4-0 Nurolon lxcezk-ol-yhynj suture and a small fat graft. No more and leaking was noted during the entire case. With the thecal sac retracted and protected the disc space was entered on the left using a 11 blade scalpel. Scrapers very sizes, curettes of various configurations, pituitary rongeur and a rasp were used to remove as much cartilaginous endplate and disc material as possible down to bleeding cortical flat surfaces on the opposing bones. The disc space was incised an appropriately-sized titanium interbody device was chosen and filled with local autograft bone in the disc space was likewise filled with local autograft bone medially and anteriorly. The interbody device was then placed with 2-3 mm countersink within the disc space. Pedicle screw instrumentation was performed at L4 and L5 by observing and palpating the pedicle while a hole was made in superior to the process above the pedicle using Midas Douglas drill. The pedicle was then cannulated with a pedicle probe, checked for continuity with the ball probe, tapped with a 5.5 mm tap and a 6.5 x 50 mm screw was placed into each pedicle on each side except on the right at L5 were a 45 mm screw was placed. Rods placed in the screw heads on either side and secured in position using the caps that purpose. These were definitively tightened with a torque and anti torque device. A verifying x-rays obtained to verify good position of the instrumentation which was confirmed. The wound was then Bovie gated with bacitracin irrigation all bleeding stopped with bipolar Bovie cautery and Gelfoam thrombin powder. The wound was then closed in layered fashion with 2-0 Vicryl interrupted sutures in the lumbodorsal fascia and Cassandra's layer. 3-0 Vi
--- NOTE | 2022-08-02 11:37 | WPDNEUROSGPN ---
Progress Note: A&P Assessment and Plan (1) Lumbar stenosis with neurogenic claudication: Code(s): M48.062 - Spinal stenosis, lumbar region with neurogenic claudication Status: Acute (2) Spondylolisthesis at L4-L5 level: Code(s): M43.16 - Spondylolisthesis, lumbar region Status: Acute Plan Divina is progressing status post L4-5 posterior lumbar interbody fusion L3-4 laminectomy. She needs more time with physical and occupational therapy before being sent home. She will work on independent transfers today and pain control. Subjective Date/time seen: 08/02/22 11:37 Interval history: Divina is postop day 2 status post L4-5 posterior lumbar interbody fusion L3-4 laminectomy. She is doing well. She has pain in her back and has some difficulty with transfers but is ambulating once she is able to sit up. She is able to rise from a sitting to a standing position. Getting up out of the bed is still difficult for her. She does not report any specific muscle group weakness or dermatomal numbness or any new bowel or bladder issues. Exam Narrative: Strength is 5/5 in all muscle groups of the bilateral lower extremities. Sensation is intact to light touch throughout the lower extremities. Her wound is clean, dry and intact. Objective Data Vital Signs Vital Signs: Vital Signs - 24 hr 08/01/22 13:13 08/01/22 19:51 08/01/22 20:00 Temperature 97.1 F L 97.7 F Pulse Rate 91 80 Respiratory Rate 18 16 Blood Pressure 118/46 L 110/50 L Pulse Oximetry 98 95 Oxygen Delivery Room Air 08/02/22 00:10 08/02/22 05:34 08/02/22 08:16 Temperature 97.9 F 98.0 F Pulse Rate 81 82 78 Respiratory Rate 16 16 Blood Pressure 99/50 L 128/54 L Pulse Oximetry 93 97 Oxygen Delivery 08/02/22 08:23 Temperature Pulse Rate Respiratory Rate Blood Pressure Pulse Oximetry Oxygen Delivery Room Air Intake/Output Intake/Output: Intake & Output 07/30/22 07/31/22 08/01/22 08/02/22 23:59 23:59 23:59 23:59 Intake Total 790 2210 2530 Output Total 480 1200 Balance 310 1010 2530 Meds/Results Medications: Active Medications Generic Name Dose Route Start Last Admin Trade Name Freq PRN Reason Stop Dose Admin Al Hydrox/Mg Hydrox/Simethicone 20 ml 07/31/22 12:44 Mag Hydrox/Al Hydrox/Simeth 30 Ml Udc PO Q4H PRN Indigestion/Heartburn Bisacodyl 10 mg 07/31/22 12:44 Bisacodyl 10 Mg Suppository RECTAL DAILY PRN Constipation Bisoprolol Fumarate 10 mg 08/01/22 09:00 08/02/22 08:16 Bisoprolol Fumarate 5 Mg Tablet PO 08/31/22 08:59 10 mg DAILY RCISTY Administration Cyclobenzaprine HCl 10 mg 07/31/22 12:44 08/01/22 17:07 Cyclobenzaprine Hcl 10 Mg Tablet PO 10 mg TID PRN Administration Muscle Spasms Docusate Sodium 100 mg 07/31/22 21:00 08/02/22 08:23 Docusate Sodium 100 Mg Capsule PO 100 mg Q12HR CRISTY Administration Fluticasone Propionate 2 spray 07/31/22 12:44 Fluticasone Propionate 0.05% Na Spr 16 Gm Btl (*Bkc) NASAL DAILY PRN nasal congestion Folic Acid 1 mg 08/01/22 09:00 08/02/22 08:19 Folic Acid 1 Mg Tablet PO 1 mg DAILY CRISTY Administration Gabapentin 300 mg 07/31/22 21:00 08/01/22 20:40 Gabapentin 300 Mg Capsule PO 300 mg HS CRISTY Administration Hydrochlorothiazide 6.25 mg 08/01/22 09:00 08/02/22 08:20 Hydrochlorothiazide 6.25 Mg Tablet PO 08/31/22 08:59 6.25 mg DAILY RCISTY Administration Hydromorphone HCl 0.5 mg 07/31/22 12:44 07/31/22 15:18 Hydromorphone Hcl Inj (*Crx) 1 Mg/Ml Syr IV PUSH 0.5 mg Q2H PRN Administration Pain Rated 7-10 Cefazolin Sodium 1 gm in 50 mls @ 100 mls/hr 07/31/22 16:00 08/02/22 08:14 Ancef 1 Gm/Ns 50 Ml IVPB 100 mls/hr Q8H CRISTY Administration Lisinopril 40 mg 08/01/22 09:00 08/02/22 08:19 Lisinopril 20 Mg Tablet PO 40 mg DAILY CRISTY Administration Melatonin 5 mg 08/01/22 21:00 08/01/22 21:02 Tammy
[2022-08-02] MEDS: CYCLOBENZAPRINE HCL 10 MG TABLET PO ×2 (12:51→17:26)
[2022-08-02] MEDS: oxyCODONE/ACETAMINOPHEN (*CRX) 5-325 MG TABLET 1 TABLET PO (12:52)
[2022-08-02 14:47] VITALS: BP 113/49; PULSE 76; RESP 18; TEMP 36.8; O2SAT 95
[2022-08-02] MEDS: GABAPENTIN 300 MG CAPSULE PO (20:27)
[2022-08-02] MEDS: MELATONIN 5 MG TABLET PO (20:27)
[2022-08-02 20:50] VITALS: BP 86/44; PULSE 76; RESP 16; TEMP 36.5; O2SAT 98
[2022-08-03 01:16] VITALS: BP 132/60; PULSE 82; RESP 16; TEMP 36.5; O2SAT 96
[2022-08-03 04:57] VITALS: BP 102/50; PULSE 83; RESP 16; TEMP 37.2; O2SAT 92
[2022-08-03] MEDS: ceFAZolin 1 GM/NS 50 ML 1 GM/50 ML BAG IVPB (08:54)
[2022-08-03 08:55] VITALS: PULSE 92
[2022-08-03] MEDS: bisoproloL fumarate 5 MG TABLET 10 MG PO (08:55)
[2022-08-03] MEDS: oxyCODONE/ACETAMINOPHEN (*CRX) 10-325 MG TABLET 1 TAB PO (08:55)
[2022-08-03] MEDS: VENLAFAXINE HCL XR 75 MG CAP.ER.24H 150 MG PO (08:55)
[2022-08-03] MEDS: polyethylene glycoL 3350 17 GM POWD.PACK PO (09:00)
[2022-08-03] MEDS: DOCUSATE SODIUM 100 MG CAPSULE PO (09:00)
[2022-08-03] MEDS: hydroCHLOROthiazide 6.25 MG TABLET PO (09:00)
[2022-08-03] MEDS: FOLIC ACID 1 MG TABLET PO (09:02)
[2022-08-03] MEDS: lisinopriL 20 MG TABLET 40 MG PO (09:02)
[2022-08-03 09:20] VITALS: BP 126/40; PULSE 92; RESP 14; O2SAT 97
[2022-08-03] MEDS: CYCLOBENZAPRINE HCL 10 MG TABLET PO ×2 (12:40→12:41)
[2022-08-03] MEDS: oxyCODONE/ACETAMINOPHEN (*CRX) 5-325 MG TABLET 1 TABLET PO (12:40)
--- NOTE | 2022-08-13 09:36 | PM.DS ---
DS: Admitting Diagnosis Discharge Date 08/03/22 Admitting Diagnosis L4-5 spondylolisthesis and spondylosis, L3-4 and L4-5 stenosis DS: Discharge Diagnosis Discharge Diagnosis (1) Lumbar stenosis with neurogenic claudication: Code(s): M48.062 - Spinal stenosis, lumbar region with neurogenic claudication Status: Acute (2) Spondylolisthesis at L4-L5 level: Code(s): M43.16 - Spondylolisthesis, lumbar region Status: Acute DS: Summary Hospital Course Hospital Course: the patient was taken to the operating room on 07/31/2022 where an L4-5 posterior lumbar interbody fusion L3-4 laminectomy was performed without complication. The patient went to the floor postoperatively. Her drain Abrriga catheter removed on postoperative day 1. Physical and occupational therapy were involved in her care. By postoperative day 3 she was eating, ambulating, emptying her bladder and her pain was under control with by mouth pain medicine. Wounds remained clean dry and intact. She was afebrile stable vital signs. She was therefore like to be discharged home. Time Spent with Patient Time attestation: Total time spent providing and/or coordinating discharge services: Discharge Plan Discharge Attending physician on discharge: Favian Coffman Consulting providers: Morgan Baltazar Discharging Clinician: Favian Coffman Anticipated Discharge Date/Time: 08/03/22 13:27 Patient Disposition: Home, Self-Care Activity: may shower Diet: as tolerated Wound Care Instructions: follow printed instructions Discharge Instructions: INSTRUCTIONS AFTER YOUR LUMBAR LAMINECTOMY/DECOMPRESSION/FORAMINOTOMY/DISCECTOMY Incisions may be closed with either: Steri-strips (let them wear off on their own). Surgical glue (let it peel off on its own). Sutures or cielo (call the office for an appointment to have these removed). Keep the incision dry for the first three days after surgery. Never apply ointments or lotions to the incision. The incision should be checked daily. Notify the office if there is drainage, redness, or if you have fever with a temperature of over 100 degrees. After the third postop day, it is okay to shower. Let soap and water run over your incision. No soaking in a tub, hot tub, or pool for at least one month. You are encouraged to walk as much as comfortable, with assistance as needed. For example, it may be beneficial to walk short distances hourly during the waking hours and gradually increase walking during your recovery period. Fatigue can be common. Avoid any bending, heavy lifting, twisting movements. You have an scysy-gc-[id number]-pound lift restriction until further advised by your physician (A gallon of milk weighs eight pounds). Make frequent position changes, avoiding long periods of sitting. Try not to sit more than 30 minutes at a time. You may engage in sexual activity in two weeks as tolerated. No housework, especially vacuuming, making beds, or doing laundry until seen in the office. You may walk stairs carefully. Minimize car rides for two weeks. Driving can usually be resumed within two weeks; however, you may not drive at that time if still taking pain medications. Once you are discharged from the hospital, please call the office to set up your postop appointment. The physician may order pain medication and/or muscle relaxers. As time goes by, you should require less of these. Always take your medication as ordered, and only if needed. If you take more than prescribed, it will not be refilled early. If you feel you require narcotic medication refill, kindly give the office a 72-hour notice. No refills are given over the weekend. Anti-inflammatory meds (like Ibuprofen, Aleve, Advil, Motrin) may be used if approved by your surgeon. Over the counter Tylenol products may be used but use caution mixing Tylenol with your pain medication. The common pain pills include Acetaminophen as an ingredient
== END 2022-08-03 14:25 | disposition home or self-care (01) | DRG 460 ==
LOC: ANH2MED 12:55
PROVIDERS: Admitting Provider Neurological Surgery; PCP Internal Medicine; Visit Provider Neurological Surgery
PROC: 0SG00AJ Fusion of Lumbar Vertebral Joint with Interbody Fusion Device, Posterior Approach, Anterior Column, Open Approach (ICD-10-PCS; CPT 22612; principal; 2022-07-31 08:00)
DX: M48.062 Spinal stenosis, lumbar region with neurogenic claudication (principal); M43.16 Spondylolisthesis, lumbar region; I10 Essential (primary) hypertension; E61.1 Iron deficiency; M17.0 Bilateral primary osteoarthritis of knee; M54.41 Lumbago with sciatica, right side; Z87.891 Personal history of nicotine dependence; Z79.82 Long term (current) use of aspirin
CPT/HCPCS: 97161; 97165; 97530; 97535; 99199; A9270; C1713; J0330; J0690; J1100; J1170; J2250; J2370; J2405; J2704; J3010; J7120

== ENCOUNTER 2022-08-15 21:27 | Inpatient (IN) | payer MEDICARE, BC, SELFPAY ==
[2022-08-15] VITALS (20 sets, daily range): BP systolic 97–125; BP diastolic 43–62; PULSE 72–82; RESP 14; TEMP 36.9; O2SAT 92–97
--- NOTE | ~2022-08-15 | XR_ITS ---
AP view of the pelvis and AP and lateral views of the left hip Clinical history: Pain Findings: No acute fracture or dislocation is seen. Osseous alignment is anatomic. Bilateral hip and SI joint spaces are preserved. Soft tissues are unremarkable. Impression: No significant abnormality is seen. Reviewed, dictated and finalized at [facility]. Impression: No significant abnormality is seen.
--- NOTE | ~2022-08-15 | CT_ITS ---
Noncontrast CT scan of the lumbar spine CLINICAL HISTORY: Radicular pain, back surgery 2 weeks ago TECHNIQUE: Axial noncontrast imaging of the lumbar spine was performed. Sagittal and coronal reformat mona images were constructed. Dose reduction technique was used on this scan by utilizing automated ex posure control and iterative reconstruction technique. The dose-length product (DLP) was 1208.55 mGy- cm. COMPARISON: 11/16/2021 FINDINGS: There is evidence of interval posterior fusion from L4 to L5, with bilateral rods and trans pedicular screws present, as well as interbody disc fusion device at the L4-L5 disc space. There is s table 6 mm anterolisthesis of L4 over L5. L4 laminectomy present. There is additional severe degenera tive disc narrowing at L5-S1. At L1-L2, there is prominent anterior bridging osteophyte. No disc bulge or herniation. There is mild to moderate facet arthropathy. No central canal stenosis or neural foraminal narrowing. At L2-L3, there is probable minimal disc bulge. There is moderate to advanced facet arthropathy, left worse than right. No central canal stenosis or left neural foraminal narrowing. Probable minimal rig ht neural foraminal narrowing. L3-L4, disc bulge and severe facet arthropathy result in probable severe central canal stenosis/theca l sac compression. Neural foramina are relatively well-preserved. At L4-L5, there is no definite central canal stenosis, though there is streak artifact which limits e valuation. There is moderate to severe bilateral neural foraminal narrowing. At L5-S1, there is probable mild diffuse disc bulge with mild facet arthropathy. Also mild central ca nal stenosis. There is moderate to advanced bilateral neural foraminal narrowing. Paravertebral soft tissues demonstrate expected changes related to recent surgery. Impression: Interval posterior fusion changes at the L4-5 level, as detailed above. Stable underlying 6 mm viraj listhesis of L4 over L5. Moderate degenerative spondylosis overall, with probable severe degenerative changes at L3-L4. See de tails above. Reviewed, dictated and finalized at location M. Impression: Interval posterior fusion changes at the L4-5 level, as detailed above. Stable underlying 6 mm anterolisthesis of L4 over L5. Moderate degenerative spondylosis overall, with probable severe degenerative ch anges at L3-L4. See details above.
--- NOTE | 2022-08-15 22:58 | ED.GENADULT ---
HPI - General Adult General Chief complaint: Unspecified Stated complaint: LLE POST-OP PAIN Time Seen by Provider: 08/15/22 21:43 History of Present Illness HPI narrative: This is a 72-year-old female with a history of sciatica presenting The pain radiating down the back of her left leg over the side of her thigh and over her knee. Patient had neuro surgery approximately 2 weeks ago. She has been doing well at home but has recently run out of steroids. Today she had increased pain. The patient has taken Veyo 7.5 mg/ 325 Tylenol x2 at noon. She then took some Tylenol 1000 mg at 7. She is not taking any other pain medication today. Patient denies lower back pain, fever, chills, weakness, urinary retention or bowel incontinence. Patient has been in contact with her neurosurgeon's office but has been having issues getting her prescription medications. Related Data Home Medications Medication Instructions Recorded Confirmed aspirin 81 mg tablet,delayed 81 mg PO DAILY 05/12/19 07/25/22 release (Adult Low Dose Aspirin) omeprazole magnesium 20 mg 20 mg PO BID PRN ACID REFLEX 07/25/22 07/31/22 capsule,delayed release Allergies Allergy/AdvReac Type Severity Reaction Status Date / Time levocetirizine Allergy Intermediate pain in Verified 08/15/22 21:33 head Sulfa (Sulfonamide Allergy Mild hives Verified 08/15/22 21:33 Antibiotics) sulfanilamide Allergy Mild Hives Verified 08/15/22 21:33 PMFSH Past Medical History Medical History Arthritis of both knees Chronic midline low back pain with right-sided sciatica Dizziness DUNNE (dyspnea on exertion) Essential (primary) hypertension Folate deficiency Other allergic rhinitis Primary osteoarthritis of both knees Primary osteoarthritis of left knee Surgical History Surgical History H/O hemorrhoidectomy H/O pelvic surgery H/O rhinoplasty H/O: hysterectomy History of back surgery Hx of appendectomy Hx of cholecystectomy Hx of tonsillectomy S/P adenoidectomy Family History Family History Father Hypertension Family history of Alzheimer's disease Patient's father is Mother Hypertension Patient's mother is in good health Sibling Hypertension Asthma Patient's brother is in good health Other Cerebrovascular accident Family history of allergic disorder Family history of arthritis Social History Social History Smoking packs per day: 1.5 Smoking cigarettes per day: 30.0 Years smoked: 50 Smoking pack-years: 75.00 Smoking status: Never smoker Tobacco type: cigarettes Second hand tobacco smoke exposure: No Smoking end date: 04/01/15 Alcohol intake: never Substance use: never Substance use type: does not use Lack of Transportation: No Lack of Food: Never True Current Housing: I Have Housing Concerned About Future Housing: No Difficulty Paying Gas/Electric Bills: No Difficulty Paying for Meds: No Currently Unemployed: No Education: High School Diploma/GED Difficulty w/ Childcare or Family Care: No Living arrangements: with family Spiritual care concerns: No Exam Narrative: APPEARANCE: No apparent distress. Head: atraumatic. EYES: EOMI, NOSE: Atraumatic NECK: Trachea midline RESPIRATORY: No increased rate of breathing CARDIOVASCULAR: RRR, ABDOMINAL: Non-distended MUSCULOSKELETAl: no midline lumbar tenderness, straight leg positive bilaterally, strength intact, sensation light touch intact, no saddle anesthesia no overlying skin changes NEURO: Alert. Moving 4/4 extremities SKIN:: Warm, dry. Normal color PSYCHIATRIC: Normal affect Course Vital Signs Vital signs: Vital Signs Temperature 98.4 F 08/15/22 21:26 Pulse Rate 72 08/15/22 21:
[2022-08-15] MEDS: methocarbamoL 750 MG TABLET 1500 MG PO (23:34)
[2022-08-15] MEDS: oxyCODONE HCL (*CRX) 5 MG TAB IR 10 MG PO (23:34)
[2022-08-15] MEDS: GABAPENTIN 300 MG CAPSULE 600 MG PO (23:35)
[2022-08-15] MEDS: LIDOCAINE 5% PATCH 1 PATCH TRANSDERM (23:35)
[2022-08-16] VITALS (11 sets, daily range): BP systolic 98–120; BP diastolic 41–73; PULSE 55–85; RESP 16–18; TEMP 36.2–36.5; O2SAT 92–97; BMI 39.1
[2022-08-16] MEDS: ONDANSETRON INJ 4 MG/2 ML VIAL IV PUSH (02:05)
[2022-08-16 02:22] LABS: Basophils Absolute Auto 0.1 K/mm3 (0.0-0.1); Basophils Percent Auto 0.5 % (0.2-1.2); Eosinophils Absolute Auto 0.2 K/mm3 (0-0.3); Eosinophils Percent Auto 1.6 % (0-4.4); Hematocrit 38.6 % (37.0-47.0); Hemoglobin 12.6 g/dL (12.0-15.0); Immature Granulocyte Absolute 0.05 K/mm3 (0.00-0.031); Immature Granulocyte Percent A 0.5 % (0-0.5); Lymphocytes Absolute Auto 0.78 K/mm3 (0.9-3.2); Lymphocytes Percent Auto 8.6 % (18.3-44.2); Mean Corpuscular HGB Conc 32.6 g/dl (32-36); Mean Corpuscular Hemoglobin 31.1 pg (26-34); Mean Corpuscular Volume 95.3 fl (80-100); Monocytes Absolute Auto 0.3 K/mm3 (0.1-0.6); Monocytes Percent Auto 3.3 % (2.6-8.5); Neutrophils Absolute Auto 7.8 K/mm3 (1.3-6.7); Neutrophils Percent Auto 85.5 % (45.5-73.1); Platelet Count Result 311 k/mm3 (150-375); Red Blood Count 4.05 M/mm3 (4.2-5.4); Red Cell Distribution Width 12.6 % (11.5-14.5); White Blood Count 9.1 K/mm3 (4.5-10.0)
[2022-08-16 02:23] LABS: Anion Gap 7 mmol/L (8-16); Blood Urea Nitrogen 27 mg/dL (7-17); Calcium 8.9 mg/dL (8.4-10.2); Carbon Dioxide 30 mmol/L (22-30); Chloride 99 mmol/L (98-107); Estimated CRCL calculation 60 ml/min; Estimated Glomerular Filt Rate > 60; Glucose 145 mg/dL (65-110); Potassium 4.5 mmol/L (3.4-5.0); Sodium 136 mmol/L (137-145)
--- NOTE | 2022-08-16 03:24 | PM.IMHP ---
H&P: HPI History of Present Illness Date/Time: 08/16/22 03:24 Chief Complaint: sciatica Narrative: This is a 72-year-old female with past medical history significant for spinal stenosis, chronic back pain, hypertension, GERD, morbid obesity. Patient is status post spinal stenosis surgery 2 weeks ago when home with sciatica p.o. steroids according to patient initially seemed to be getting better but once concluded p.o. steroids pain got worse localized to the lower back radiates down the left leg to the front down to her ankle improved with pain medication, worse with weight-bearing and ambulation and movement. Patient is been admitted for further evaluation management and treatment. MRI in the morning neurosurgery has been consulted Noncontrast CT scan of the lumbar spine CLINICAL HISTORY: Radicular pain, back surgery 2 weeks ago TECHNIQUE: Axial noncontrast imaging of the lumbar spine was performed. Sagittal and coronal reformatted images were constructed. Dose reduction technique was used on this scan by utilizing automated exposure control and iterative reconstruction technique. The dose-length product (DLP) was 1208.55 mGy-cm. COMPARISON: 11/16/2021 FINDINGS: There is evidence of interval posterior fusion from L4 to L5, with bilateral rods and transpedicular screws present, as well as interbody disc fusion device at the L4-L5 disc space. There is stable 6 mm anterolisthesis of L4 over L5. L4 laminectomy present. There is additional severe degenerative disc narrowing at L5-S1. At L1-L2, there is prominent anterior bridging osteophyte. No disc bulge or herniation. There is mild to moderate facet arthropathy. No central canal stenosis or neural foraminal narrowing. At L2-L3, there is probable minimal disc bulge. There is moderate to advanced facet arthropathy, left worse than right. No central canal stenosis or left neural foraminal narrowing. Probable minimal right neural foraminal narrowing. L3-L4, disc bulge and severe facet arthropathy result in probable severe central canal stenosis/thecal sac compression. Neural foramina are relatively well-preserved. At L4-L5, there is no definite central canal stenosis, though there is streak artifact which limits evaluation. There is moderate to severe bilateral neural foraminal narrowing. At L5-S1, there is probable mild diffuse disc bulge with mild facet arthropathy. Also mild central canal stenosis. There is moderate to advanced bilateral neural foraminal narrowing. Paravertebral soft tissues demonstrate expected changes related to recent surgery. Impression: Interval posterior fusion changes at the L4-5 level, as detailed above. Stable underlying 6 mm anterolisthesis of L4 over L5. Moderate degenerative spondylosis overall, with probable severe degenerative changes at L3-L4. See details above. Review of Systems Review of Systems: left-sided sciatica unable to bear weight worse with ambulation Constitutional: Constitutional: Denies chills, Denies fatigue, Denies fever(s), Denies frequent falls, Denies malaise and Denies night sweats Eyes: Eyes: Denies change in vision ENT: Denies dysphagia and Denies odynophagia Cardiovascular: Cardiovascular: Denies chest pain, Denies radiating jaw, neck or arm pain and Denies palpitations Respiratory: Respiratory: Denies chest congestion, Denies cough and Denies dyspnea Gastrointestinal: Gastrointestinal: Denies abdominal pain, Denies dyspepsia, Denies heartburn, Denies fecal incontinence, Denies diarrhea, Denies nausea and Denies vomiting Genitourinary: Genitourinary: Denies dysuria Musculoskeletal: Musculoskeletal: Reports back pain and Reports radiating pain into limb ( left-sided sciatica) Integumentary/Breasts: Skin/Breast: Denies rash Neurologic: Denies focal weakness, Reports radicular pain and Denies Sensory deficit (Neuro) Psychiatric: Psychiatric: Reports no additional
--- NOTE | 2022-08-16 05:22 | ADMGEN ---
This patient, Divina Griffiths, was admitted to Medical Room 340-01. Patient/family oriented to hospital policies and general routines including ID bracelet, bed and alarms, visiting hours, pain management, procedures, bathroom and other care routines, personal items, smoking policy, room service/diet, and visiting hours. Information on how to activate the Rapid Response Team has been discussed. Patient/Family are encouraged to report perceived risks to care and to ask questions if they do not understand what they are told or what they should do. Arrived to unit at 0515
--- NOTE | 2022-08-16 08:51 | PM.IMPN ---
Progress Note: A&P Assessment and Plan (1) Lumbar stenosis with neurogenic claudication: Code(s): M48.062 - Spinal stenosis, lumbar region with neurogenic claudication Status: Acute Assessment and Plan: 07/31/22 S/P L4-5 complete laminectomy and bilateral facetectomy, L4-5 complete diskectomy and interbody arthrodesis utilizing titanium interbody device, L4-5 pedicle screw instrumentation, L3-4 laminectomy. Patient presents with worsening lower back pain with radiculopathy to left leg after completing steroids. Pain not improved with oral narcotics and acetaminophen. CT lumbar spine shows L3-L4, disc bulge and severe facet arthropathy result in probable severe central canal stenosis/thecal sac compression. Neural foramina are relatively well-preserved. As well, Interval posterior fusion changes at the L4-5 level. Stable underlying 6 mm anterolisthesis of L4 over L5. Moderate degenerative spondylosis overall, with probable severe degenerative changes at L3-L4. Neurosurgery consulted and appreciate recommendations. Will defer to Neurosurgery for further imaging. Continue PO/IV analgesics and muscle relaxers. Will initiate dexamethasone 10 mg IV daily for possible severe central canal stenosis and severe pain. (2) Sciatica: Qualifiers: Laterality: bilateral Qualified Code(s): M54.31 - Sciatica, right side; M54.32 - Sciatica, left side Code(s): M54.30 - Sciatica, unspecified side Status: Chronic Assessment and Plan: Acute on chronic disease. As above. Worse to LLE this admission. (3) Spondylolisthesis at L4-L5 level: Code(s): M43.16 - Spondylolisthesis, lumbar region Status: Chronic Assessment and Plan: s/p L4-5 posterior fusion, laminectomy and diskectomy. (4) Chronic pain: Qualifiers: Chronic pain type: other chronic pain Qualified Code(s): G89.29 - Other chronic pain Code(s): G89.29 - Other chronic pain Status: Chronic Assessment and Plan: Acute on chronic lower back pain secondary to spondylosis and possible severe central canal stenosis. Continue analgesics as above. (5) Essential (primary) hypertension: Code(s): I10 - Essential (primary) hypertension Status: Chronic Assessment and Plan: Chronic, continue bisoprolol, HCTZ and lisinopril. (6) Morbid obesity with BMI of 45.0-49.9, adult: Code(s): E66.01 - Morbid (severe) obesity due to excess calories; Z68.42 - Body mass index [BMI] 45.0-49.9, adult Status: Chronic Assessment and Plan: lifestyle and diet modifications Plan CODE STATUS: FULL CODE Discharge disposition: from home. PT/OT evaluation after evaluated by Neurosurgery. Estimated LOS: likely 2 days pending further recommendations. Time Spent With Patient Time with patient: 25 - 35 minutes Subjective Date/time seen: 08/16/22 08:51 Interval history: She reports her pain is better after a muscle relaxer and percocet tablets. She has been unable to bear weight since Saturday of this week. She has intermittent urinary incontinence and difficulty holding her bowels on occasion, which is not new. The pain radiates from her left lower back radiating posteriorly to her left foot and anteriorly to her knee. She denies paresthesia at this time. No chest pain, SOB, abd pain, N/V, constipation, or urinary changes. No fevers or chills. Review of Systems Review of Systems: All systems reviewed & are unremarkable except as noted in HPI and below Exam Narrative: General: No acute distress.? Well developed adult female lying in bed. Non-toxic appearing. Mental Status/Psych: Awake, alert and oriented x4 with clear speech. Pleasant and cooperative. Skin: Skin fair, warm, dry and intact without rashes or lesions. Lumbar surgical incision well-approximated with surgical glue, without discharge or erythema. HEENT: Normocephalic. Sclera is non-icteric. Pupils equ
[2022-08-16] MEDS: hydroCHLOROthiazide 6.25 MG TABLET PO (10:20)
[2022-08-16] MEDS: FOLIC ACID 1 MG TABLET PO (10:20)
[2022-08-16] MEDS: VENLAFAXINE HCL XR 75 MG CAP.ER.24H 150 MG PO (10:21)
[2022-08-16] MEDS: lisinopriL 20 MG TABLET 40 MG PO (10:21)
[2022-08-16] MEDS: PANTOPRAZOLE 40 MG TABLET PO (10:21)
[2022-08-16] MEDS: bisoproloL fumarate 5 MG TABLET 10 MG PO (10:21)
[2022-08-16] MEDS: CYCLOBENZAPRINE HCL 10 MG TABLET PO (10:23)
[2022-08-16] MEDS: oxyCODONE/ACETAMINOPHEN (*CRX) 5-325 MG TABLET 1 TABLET PO ×2 (10:23→21:37)
--- NOTE | 2022-08-16 16:10 | WPDNEUROSGCN ---
Assessment and Plan Assessment and plan (1) Status post lumbar spinal fusion: Code(s): Z98.1 - Arthrodesis status Status: Acute (2) Lumbar radiculopathy: Code(s): M54.16 - Radiculopathy, lumbar region Status: Acute Plan HPI: Divina Griffiths is a 72 year old female with history of L4-5 spondylolisthesis and L3-4 stenosis who underwent an L3 laminectomy and L4-5 decompression and interbody fusion by Dr. Coffman on August 02 who was admitted to the hospital last night with intractable left leg pain. She had been doing relatively well after surgery improvement in her lower extremity symptoms until last week when she started getting a sense of heaviness in her thighs. She was given a Medrol Dosepak which was helpful for her symptoms; however, her symptoms then returned. She called the office who refilled some pain medication. Unfortunately, a couple days ago, she developed significant pain radiating down her left leg to the bottom of her foot. She denies any significant right leg symptoms at this time. The pain is so significant that she is unable to bear weight on her left leg. She is relatively pain-free when lying in bed. She denies any incisional drainage or fevers. she was given a dose of steroids in the ER last night intravenously. Today, she was able to walk for a period of time without significant difficulty, Although her leg pain did become significant later in the day When she attempted to walk again. Assessment: Radicular leg pain Status post L3 laminectomy, L4-5 interbody fusion and decompression on 08/02 Ms. Griffiths is a 72-year-old female who recently underwent L3 laminectomy and L4-5 decompression interbody fusion by Dr. Coffman on August 02 who presents with a couple days of radicular left leg pain. On physical exam, she is neurologically intact. Her incision appears to be healing. CT scan does not show any obvious complication at this time and shows that the hardware is in good position. At this time, I would recommend more consistent use of steroids and have change the orders to Decadron 4 mg IV every 6 hours. I would recommend that she work with physical therapy. I have canceled the ibuprofen order as we generally like for patients who have had recent fusion surgery to avoid NSAIDs as this may impair bone healing. If the Flexeril is not helpful enough for her pain, she could certainly try Robaxin 1500 mg every 6-8 hours or even Valium. I would hold off on obtaining any further imaging at this time. Plan: -Recommend decadron 4mg every 6 hours for the next 24 hours -Recommend ambulation with physical therapy -Consider robaxin or valium if flexeril is not effective enough for pain control Consult date: 08/16/22 HPI: Divina Griffiths is a 72 year old female with history of L4-5 spondylolisthesis and L3-4 stenosis who underwent an L3 laminectomy and L4-5 decompression and interbody fusion by Dr. Coffman on August 02 who was admitted to the hospital last night with intractable left leg pain. She had been doing relatively well after surgery improvement in her lower extremity symptoms until last week when she started getting a sense of heaviness in her thighs. She was given a Medrol Dosepak which was helpful for her symptoms; however, her symptoms then returned. She called the office who refilled some pain medication. Unfortunately, a couple days ago, she developed significant pain radiating down her left leg to the bottom of her foot. She denies any significant right leg symptoms at this time. The pain is so significant that she is unable to bear weight on her left leg. She is relatively pain-free when lying in bed. She denies any incisional drainage or fevers. Review of Systems Review of Systems: All systems reviewed & are unremarkable except as noted in HPI and below PMFSH Past Medical History Medical History Arthritis of both knees Chronic midline
[2022-08-16] MEDS: DEXAMETHASONE SOD PHOS INJ 4 MG/ML VIAL IV PUSH (17:26)
[2022-08-16] MEDS: GABAPENTIN 300 MG CAPSULE PO (20:48)
[2022-08-17] MEDS: CYCLOBENZAPRINE HCL 10 MG TABLET PO ×3 (00:15→21:08)
[2022-08-17] MEDS: DEXAMETHASONE SOD PHOS INJ 4 MG/ML VIAL IV PUSH ×5 (00:15→23:38)
[2022-08-17] MEDS: oxyCODONE/ACETAMINOPHEN (*CRX) 5-325 MG TABLET 1 TABLET PO ×3 (03:54→21:08)
[2022-08-17 04:00] VITALS: BP 101/47; PULSE 74; RESP 18; TEMP 36.6; O2SAT 96
[2022-08-17 05:50] LABS: Basophils Percent Auto 0.1 % (0.2-1.2); Hematocrit 35.3 % (37.0-47.0); Hemoglobin 11.6 g/dL (12.0-15.0); Immature Granulocyte Absolute 0.06 K/mm3 (0.00-0.031); Immature Granulocyte Percent A 0.6 % (0-0.5); Lymphocytes Percent Auto 9.2 % (18.3-44.2); Mean Corpuscular HGB Conc 32.9 g/dl (32-36); Mean Corpuscular Hemoglobin 31.5 pg (26-34); Mean Corpuscular Volume 95.9 fl (80-100); Mean Platelet Volume 10.3 fl (7.4-10.4); Monocytes Absolute Auto 0.3 K/mm3 (0.1-0.6); Monocytes Percent Auto 2.9 % (2.6-8.5); Neutrophils Absolute Auto 8.5 K/mm3 (1.3-6.7); Neutrophils Percent Auto 87.2 % (45.5-73.1); Platelet Count Result 289 k/mm3 (150-375); Red Blood Count 3.68 M/mm3 (4.2-5.4); Red Cell Distribution Width 12.5 % (11.5-14.5); White Blood Count 9.8 K/mm3 (4.5-10.0)
[2022-08-17 06:06] LABS: Alanine Aminotransferase 25 U/L (6-35); Albumin Level 3.7 g/dL (3.5-5.1); Alkaline Phosphatase 129 U/L (38-126); Anion Gap 5 mmol/L (8-16); Aspartate Amino Transferase 22 U/L (14-36); Bilirubin,Total 0.3 mg/dL (0.2-1.3); Blood Urea Nitrogen 27 mg/dL (7-17); Calcium 8.5 mg/dL (8.4-10.2); Carbon Dioxide 32 mmol/L (22-30); Chloride 93 mmol/L (98-107); Estimated CRCL calculation 67 ml/min; Estimated Glomerular Filt Rate > 60; Glucose 156 mg/dL (65-110); Potassium 4.2 mmol/L (3.4-5.0); Sodium 130 mmol/L (137-145)
[2022-08-17] MEDS: LIDOCAINE 5% PATCH 1 PATCH TRANSDERM (08:14)
[2022-08-17] MEDS: lisinopriL 20 MG TABLET 40 MG PO (08:14)
[2022-08-17] MEDS: VENLAFAXINE HCL XR 75 MG CAP.ER.24H 150 MG PO (08:14)
[2022-08-17] MEDS: PANTOPRAZOLE 40 MG TABLET PO (08:14)
[2022-08-17] MEDS: hydroCHLOROthiazide 6.25 MG TABLET PO (08:14)
[2022-08-17] MEDS: polyethylene glycoL 3350 17 GM POWD.PACK PO (08:14)
[2022-08-17 08:15] VITALS: PULSE 74
[2022-08-17] MEDS: FOLIC ACID 1 MG TABLET PO (08:15)
[2022-08-17] MEDS: bisoproloL fumarate 5 MG TABLET 10 MG PO (08:15)
--- NOTE | 2022-08-17 15:38 | PM.IMPN ---
Progress Note: A&P Assessment and Plan (1) Lumbar radiculopathy: Code(s): M54.16 - Radiculopathy, lumbar region Status: Acute Assessment and Plan: Patient presents with worsening lower back pain with radiculopathy to left leg after completing steroids. Pain not improved with oral narcotics and acetaminophen. CT lumbar spine shows L3-L4, disc bulge and severe facet arthropathy result in probable severe central canal stenosis/thecal sac compression. Neural foramina are relatively well-preserved. As well, Interval posterior fusion changes at the L4-5 level. Stable underlying 6 mm anterolisthesis of L4 over L5. Moderate degenerative spondylosis overall, with probable severe degenerative changes at L3-L4. Neurosurgery consulted and appreciate recommendations. Continue PO/IV analgesics and muscle relaxers. 08/17/2022 patient does endorse a Flexeril and Percocet helps with pain. Consider changing to Robaxin or Valium per Neurosurgery if Flexeril is not effective with pain when mobilizing. Dexamethasone 4 mg p.o. q.6 hours times 24 hours recommended by Neurosurgery. (2) Status post lumbar spinal fusion: Code(s): Z98.1 - Arthrodesis status Status: Acute Assessment and Plan: 07/31/22 S/P L4-5 complete laminectomy and bilateral facetectomy, L4-5 complete diskectomy and interbody arthrodesis utilizing titanium interbody device, L4-5 pedicle screw instrumentation, L3-4 laminectomy. (3) Chronic pain: Qualifiers: Chronic pain type: other chronic pain Qualified Code(s): G89.29 - Other chronic pain Code(s): G89.29 - Other chronic pain Status: Chronic Assessment and Plan: Acute on chronic lower back pain secondary to spondylosis and possible severe central canal stenosis. Continue analgesics as above. (4) Essential (primary) hypertension: Code(s): I10 - Essential (primary) hypertension Status: Chronic Assessment and Plan: Chronic, continue bisoprolol, HCTZ and lisinopril. (5) Morbid obesity with BMI of 45.0-49.9, adult: Code(s): E66.01 - Morbid (severe) obesity due to excess calories; Z68.42 - Body mass index [BMI] 45.0-49.9, adult Status: Chronic Assessment and Plan: lifestyle and diet modifications Plan CODE STATUS: FULL CODE Discharge disposition: from home. PT/OT evaluation. Patient may require rehab at discharge. Estimated LOS: Possible discharge in 1-2 days pending improvement pain and of discharge arrangements. Time Spent With Patient Time with patient: 15 - 25 minutes Subjective Date/time seen: 08/17/22 15:38 Interval history: Patient found lying in bed. She reported increased pain overnight and has not been walking today. Pain is tolerable today with muscle relaxers and narcotics as needed, however she does feel a little ?out of it? when taking this medication. She denies paresthesia or paralysis. She has not had a bowel movement since admission, but denies abdominal pain, nausea or vomiting. Review of Systems Review of Systems: All systems reviewed & are unremarkable except as noted in HPI and below Exam Narrative: General: No acute distress.? lying in bed. Non-toxic appearing. Mental Status/Psych: Awake, alert and oriented x4 with clear speech. Pleasant and cooperative. Skin: Skin fair, warm, dry and intact without rashes or lesions. Lumbar incision for not assessed. HEENT: Normocephalic. Sclera is non-icteric. Oral mucosa pink and moist. Neck: No JVD. Heart: S1 and S2 regular rate and rhythm. No murmurs, gallops, or rubs auscultated. Chest: Respirations even and unlabored. Lung sounds are clear to auscultation without wheezes, rhonchi, or rales. Abdomen: Soft, obese and non-tender to palpation.? Bowel sounds present in all 4 quadrants. No guarding. Extremities:? No edema, erythema or calf tenderness. BLE ROM limited due to pain, 4-5/5 muscle strength. Radial and dorsalis pedis pulses +2 bilater
[2022-08-17 17:10] VITALS: BP 101/48; PULSE 71; RESP 18; TEMP 36.4; O2SAT 96
[2022-08-17 19:55] VITALS: BP 95/47; PULSE 77; RESP 16; TEMP 36.6; O2SAT 96
[2022-08-17] MEDS: GABAPENTIN 300 MG CAPSULE PO (21:04)
[2022-08-17] MEDS: SENNA/DOCUSATE SODIUM TABLET 1 TAB PO (21:22)
[2022-08-18 04:29] VITALS: BP 155/58; PULSE 73; RESP 18; TEMP 36.1; O2SAT 100
[2022-08-18] MEDS: DEXAMETHASONE SOD PHOS INJ 4 MG/ML VIAL IV PUSH (05:40)
[2022-08-18 09:44] VITALS: PULSE 82
[2022-08-18] MEDS: bisoproloL fumarate 5 MG TABLET 10 MG PO (09:44)
[2022-08-18 09:45] VITALS: PULSE 82; RESP 18; O2SAT 100
[2022-08-18] MEDS: hydroCHLOROthiazide 6.25 MG TABLET PO (09:46)
[2022-08-18] MEDS: PANTOPRAZOLE 40 MG TABLET PO (09:46)
[2022-08-18] MEDS: FOLIC ACID 1 MG TABLET PO (09:46)
[2022-08-18] MEDS: lisinopriL 20 MG TABLET 40 MG PO (09:46)
[2022-08-18] MEDS: VENLAFAXINE HCL XR 75 MG CAP.ER.24H 150 MG PO (09:46)
[2022-08-18] MEDS: polyethylene glycoL 3350 17 GM POWD.PACK PO (09:47)
[2022-08-18] MEDS: LIDOCAINE 5% PATCH 1 PATCH TRANSDERM (10:46)
[2022-08-18] MEDS: CYCLOBENZAPRINE HCL 10 MG TABLET PO ×2 (13:47→21:47)
[2022-08-18] MEDS: oxyCODONE/ACETAMINOPHEN (*CRX) 5-325 MG TABLET 1 TABLET PO ×2 (13:47→21:47)
--- NOTE | 2022-08-18 13:55 | WPDNEUROSGPN ---
Progress Note: A&P Assessment and Plan (1) Status post lumbar spinal fusion: Code(s): Z98.1 - Arthrodesis status Status: Acute (2) Lumbar radiculopathy: Code(s): M54.16 - Radiculopathy, lumbar region Status: Acute Plan Ms. Griffiths appears to be improving quite a bit with respect to her leg pain. She is neurologically intact on exam, and her incision is healing well. She is working with therapy and ambulating without significant pain. The therapist is about to work with her now and will make a recommendation as to disposition. From a Neurosurgery standpoint, she is progressing well and can be discharged when cleared by therapy. She should keep her follow up with Dr. Coffman as scheduled. Subjective Date/time seen: 08/18/22 13:55 Interval history: Patient states that her leg pain is much better. She has been able to walk without significant pain. No new complaints today. Review of Systems Review of Systems: All systems reviewed & are unremarkable except as noted in HPI and below Exam Narrative: AOx4 Full strength in lower extremities Sensation intact to light touch Incision is healing well Objective Data Vital Signs Vital Signs: Vital Signs - 24 hr 08/17/22 14:49 08/17/22 17:10 08/17/22 19:55 Temperature 97.6 F 97.8 F Pulse Rate 71 77 Respiratory Rate 18 16 Blood Pressure 101/48 L 95/47 L Pulse Oximetry 96 96 Oxygen Delivery Room Air 08/18/22 04:29 08/18/22 09:44 08/18/22 09:45 Temperature 97 F L Pulse Rate 73 82 82 Respiratory Rate 18 18 Blood Pressure 155/58 H Pulse Oximetry 100 100 Oxygen Delivery Room Air Intake/Output Intake/Output: Intake & Output 08/15/22 08/16/22 08/17/22 08/18/22 23:59 23:59 23:59 23:59 Intake Total 1360 1745 870 Output Total 200 200 Balance 1160 1545 870 Meds/Results Medications: Active Medications Generic Name Dose Route Start Last Admin Trade Name Freq PRN Reason Stop Dose Admin Bisacodyl 10 mg 08/16/22 14:56 Bisacodyl 10 Mg Suppository RECTAL QAM PRN Constipation Bisoprolol Fumarate 10 mg 08/16/22 09:00 08/18/22 09:44 Bisoprolol Fumarate 5 Mg Tablet PO 10 mg DAILY CRISTY Administration Cyclobenzaprine HCl 10 mg 08/16/22 08:35 08/18/22 13:47 Cyclobenzaprine Hcl 10 Mg Tablet PO 10 mg Q8H PRN Administration Muscle Spasm Fluticasone Propionate 2 spray 08/16/22 08:48 Fluticasone Propionate 0.05% Na Spr 16 Gm Btl (*Bkc) NASAL DAILY PRN nasal congestion Folic Acid 1 mg 08/16/22 09:00 08/18/22 09:46 Folic Acid 1 Mg Tablet PO 1 mg DAILY CRISTY Administration Gabapentin 300 mg 08/16/22 21:00 08/17/22 21:04 Gabapentin 300 Mg Capsule PO 300 mg HS CRISTY Administration Hydrochlorothiazide 6.25 mg 08/16/22 09:00 08/18/22 09:46 Hydrochlorothiazide 6.25 Mg Tablet PO 6.25 mg QAM CRISTY Administration Hydromorphone HCl 0.5 mg 08/16/22 08:35 Hydromorphone Hcl Inj (*Crx) 1 Mg/Ml Syr IV PUSH Q3H PRN Pain Rated 7-10 Lidocaine 1 patch 08/17/22 09:00 08/18/22 10:46 Lidocaine 5% Patch TRANSDERM 1 patch DAILY CRISTY Administration Lisinopril 40 mg 08/16/22 09:00 08/18/22 09:46 Lisinopril 20 Mg Tablet PO 40 mg DAILY CRISTY Administration Ondansetron HCl 4 mg 08/16/22 08:37 Ondansetron Inj 4 Mg/2 Ml Vial IV PUSH Q4H PRN Nausea And Vomiting Oxycodone/Acetaminophen 1 tablet 08/16/22 08:35 08/18/22 13:47 Oxycodone/Acetaminophen (*Crx) 5-325 Mg Tablet PO 1 tablet Q4H PRN Administration Pain Rated 7-10 Pantoprazole Sodium 40 mg 08/16/22 09:00 08/18/22 09:46 Pantoprazole 40 Mg Tablet PO 40 mg QAM CRISTY Administration Polyethylene Glycol 17 gm 08/17/22 09:00 08/18/22 09:47 Polyethylene Glycol 3350 17 Gm Powd.Pack PO 17 gm QAM CRISTY Administration Senna/Docusate Sodium 1 tab 08/17/22 21:00 08/17/22 21:22 Senna/Docusate Sodium Tablet PO 1 tab HS CRISTY Ad
[2022-08-18 14:00] VITALS: BP 118/80; PULSE 80; RESP 18; TEMP 36.6; O2SAT 98
--- NOTE | 2022-08-18 15:02 | PM.IMPN ---
Progress Note: A&P Assessment and Plan (1) Lumbar radiculopathy: Code(s): M54.16 - Radiculopathy, lumbar region Status: Acute Assessment and Plan: Patient presents with worsening lower back pain with radiculopathy to left leg after completing steroids. Pain not improved with oral narcotics and acetaminophen. CT lumbar spine shows L3-L4, disc bulge and severe facet arthropathy result in probable severe central canal stenosis/thecal sac compression. Neural foramina are relatively well-preserved. As well, Interval posterior fusion changes at the L4-5 level. Stable underlying 6 mm anterolisthesis of L4 over L5. Moderate degenerative spondylosis overall, with probable severe degenerative changes at L3-L4. Neurosurgery consulted and appreciate recommendations. Continue PO/IV analgesics and muscle relaxers. 08/17/2022 patient does endorse a Flexeril and Percocet helps with pain. Consider changing to Robaxin or Valium per Neurosurgery if Flexeril is not effective with pain when mobilizing. Dexamethasone 4 mg p.o. q.6 hours times 24 hours recommended by Neurosurgery. 08/18/22 dexamethasone completed. Continue flexeril and percocet PRN. continue PT/OT with discharge arrangements per recommendations. (2) Status post lumbar spinal fusion: Code(s): Z98.1 - Arthrodesis status Status: Acute Assessment and Plan: 07/31/22 S/P L4-5 complete laminectomy and bilateral facetectomy, L4-5 complete diskectomy and interbody arthrodesis utilizing titanium interbody device, L4-5 pedicle screw instrumentation, L3-4 laminectomy. (3) Essential (primary) hypertension: Code(s): I10 - Essential (primary) hypertension Status: Chronic Assessment and Plan: Chronic, continue bisoprolol, HCTZ and lisinopril. (4) Morbid obesity with BMI of 45.0-49.9, adult: Code(s): E66.01 - Morbid (severe) obesity due to excess calories; Z68.42 - Body mass index [BMI] 45.0-49.9, adult Status: Chronic Assessment and Plan: lifestyle and diet modifications (5) Chronic pain: Qualifiers: Chronic pain type: other chronic pain Qualified Code(s): G89.29 - Other chronic pain Code(s): G89.29 - Other chronic pain Status: Chronic Assessment and Plan: Acute on chronic lower back pain secondary to spondylosis and possible severe central canal stenosis. Continue analgesics as above. Plan CODE STATUS: FULL CODE Discharge disposition: from home. PT/OT evaluation. outpatient versus home health rehab at discharge. Estimated LOS: Plan to discharge tomorrow when stable on oral analgesics. Time Spent With Patient Time with patient: 15 - 25 minutes Subjective Date/time seen: 08/18/22 15:02 Interval history: She states that her back and left leg pain is improving. She is working with physical and occupational therapy. She is worried about going home and her pain worsening off of steroids. Review of Systems Review of Systems: All systems reviewed & are unremarkable except as noted in HPI and below Exam Narrative: General: No acute distress.? lying in bed. Non-toxic appearing. Mental Status/Psych: Awake, alert and oriented x4 with clear speech. Pleasant and cooperative. Skin: fair, warm, dry without rashes or lesions. Lumbar incision for not assessed. HEENT: Sclera is non-icteric. Oral mucosa pink and moist. Neck: No JVD. Heart: S1 and S2 regular rate and rhythm. Chest: Respirations even and unlabored. Abdomen: Soft, obese and non-tender to palpation.? No guarding. Extremities:? Grossly normal ROM 5/5 muscle strength bilateral lower extremities. Neurological: No focal deficits. Sensation intact BLE and equal. ? Objective Data Vital Signs Vital Signs: Vital Signs - 24 hr 08/17/22 17:10 08/17/22 19:55 08/18/22 04:29 Temperature 97.6 F 97.8 F 97 F L Pulse Rate 71 77 73 Respiratory Rate 18 16 18 Blood Pressure 101/48 L 95/47 L 155/58 H Pulse Oxime
[2022-08-18 19:20] VITALS: PULSE 74; RESP 20; TEMP 36.6; O2SAT 100
[2022-08-18] MEDS: SENNA/DOCUSATE SODIUM TABLET 1 TAB PO (20:54)
[2022-08-18] MEDS: GABAPENTIN 300 MG CAPSULE PO (20:54)
[2022-08-19 04:37] VITALS: BP 140/50; PULSE 59; RESP 20; TEMP 36.6; O2SAT 99
--- NOTE | 2022-08-19 09:07 | PM.DS ---
DS: Admitting Diagnosis Discharge Date 08/19/2022 Admitting Diagnosis Sciatica, unspecified side Chronic pain Spinal stenosis, lumbar region with neurogenic claudication Essential (primary) hypertension DS: Discharge Diagnosis Discharge Diagnosis (1) Lumbar radiculopathy: Code(s): M54.16 - Radiculopathy, lumbar region Status: Acute Assessment and Plan: Patient presents with worsening lower back pain with radiculopathy to left leg after completing steroids. Pain not improved with oral narcotics and acetaminophen. CT lumbar spine shows L3-L4, disc bulge and severe facet arthropathy result in probable severe central canal stenosis/thecal sac compression. Neural foramina are relatively well-preserved. As well, Interval posterior fusion changes at the L4-5 level. Stable underlying 6 mm anterolisthesis of L4 over L5. Moderate degenerative spondylosis overall, with probable severe degenerative changes at L3-L4. Neurosurgery consulted and appreciate recommendations. Continue PO/IV analgesics and muscle relaxers. 08/17/2022 patient endorsed a Flexeril and Percocet helps with pain. Dexamethasone 4 mg IV q.6 hours times 24 hours recommended by Neurosurgery. 08/18/22 dexamethasone completed. Continue flexeril and percocet PRN. continue PT/OT with discharge arrangements per recommendations. (2) Status post lumbar spinal fusion: Code(s): Z98.1 - Arthrodesis status Status: Acute Assessment and Plan: 07/31/22 S/P L4-5 complete laminectomy and bilateral facetectomy, L4-5 complete diskectomy and interbody arthrodesis utilizing titanium interbody device, L4-5 pedicle screw instrumentation, L3-4 laminectomy. (3) Essential (primary) hypertension: Code(s): I10 - Essential (primary) hypertension Status: Chronic Assessment and Plan: Chronic, continue bisoprolol, HCTZ and lisinopril. Stable. (4) Morbid obesity with BMI of 45.0-49.9, adult: Code(s): E66.01 - Morbid (severe) obesity due to excess calories; Z68.42 - Body mass index [BMI] 45.0-49.9, adult Status: Chronic Assessment and Plan: lifestyle and diet modifications (5) Chronic pain: Qualifiers: Chronic pain type: other chronic pain Qualified Code(s): G89.29 - Other chronic pain Code(s): G89.29 - Other chronic pain Status: Chronic Assessment and Plan: Acute on chronic lower back pain secondary to spondylosis and possible severe central canal stenosis. Continue analgesics as above. DS: Summary Hospital Course Reason for hospitalization: Left leg pain Hospital Course: Patient is a 72-year-old female with history of spinal stenosis and recent lumbar surgery on 07/31/22, chronic back pain, hypertension, GERD, and morbid obesity.?She presented to the ED for evaluation of worsening sciatica pain. She reported following surgery she was at home and doing well. She was taking p.o. steroids, according to patient,?and seemed to be getting better but after completing steroids her pain became severe and localized to the lower back radiating down the left leg to the front down?and to her ankle. She was unable to ambulate because the pain was so severe. She was taking norco at home but it was only somewhat improved. The patient was admitted to the medical floor for pain management. CT lumbar spine was obtained, Neurosurgery was consulted and reviewed imaging reporting it did not show any obvious complication at this time and shows that the hardware was in good position.?She was treated with IV/PO narcotics, PO flexeril and IV dexamethasone 4 mg IV Q6 hours 08/16-08/18. PT/OT was consulted. Her pain improved and she was able to participate in therapy. Outpatient PT was recommended. The patient was discharged home in stable condition. She will have follow up appointment with neurosurgery on 10/22/22 and with PCP in early August. She reported, and confirmed with her spouse, that she already has prescriptio
[2022-08-19] MEDS: CYCLOBENZAPRINE HCL 10 MG TABLET PO (09:37)
[2022-08-19] MEDS: oxyCODONE/ACETAMINOPHEN (*CRX) 5-325 MG TABLET 1 TABLET PO (09:37)
[2022-08-19 09:38] VITALS: PULSE 79
[2022-08-19] MEDS: bisoproloL fumarate 5 MG TABLET 10 MG PO (09:38)
[2022-08-19] MEDS: PANTOPRAZOLE 40 MG TABLET PO (09:38)
[2022-08-19] MEDS: VENLAFAXINE HCL XR 75 MG CAP.ER.24H 150 MG PO (09:39)
[2022-08-19] MEDS: LIDOCAINE 5% PATCH 1 PATCH TRANSDERM (09:39)
[2022-08-19] MEDS: polyethylene glycoL 3350 17 GM POWD.PACK PO (09:39)
[2022-08-19] MEDS: hydroCHLOROthiazide 6.25 MG TABLET PO (09:39)
[2022-08-19] MEDS: FOLIC ACID 1 MG TABLET PO (09:40)
[2022-08-19] MEDS: lisinopriL 20 MG TABLET 40 MG PO (09:41)
== END 2022-08-19 13:50 | disposition home or self-care (01) | DRG 552 ==
LOC: ANHED 08-16 03:45 → ANH3MED 08-16 04:11
PROVIDERS: Admitting Provider Internal Medicine; Emergency Provider Emergency Medicine; PCP Internal Medicine; Visit Provider Nurse Practitioner Family
DX: M48.062 Spinal stenosis, lumbar region with neurogenic claudication (principal); M54.16 Radiculopathy, lumbar region; M43.16 Spondylolisthesis, lumbar region; G89.29 Other chronic pain; I10 Essential (primary) hypertension; E66.01 Morbid (severe) obesity due to excess calories; M17.0 Bilateral primary osteoarthritis of knee; Z98.1 Arthrodesis status; Z68.39 Body mass index [BMI] 39.0-39.9, adult; Z90.49 Acquired absence of other specified parts of digestive tract; Z90.710 Acquired absence of both cervix and uterus
CPT/HCPCS: 36415; 72131; 73502; 80048; 80053; 85025; 96372; 96374; 97161; 97166; 97530; 97535; 99285; A9270; J1100; J2405

== ENCOUNTER 2022-12-22 07:39 | Outpatient (CLI) | payer MEDICARE, BC, SELFPAY ==
--- NOTE | 2022-12-22 08:01 | ECHO_ITS ---
Patient Info Name: Divina Griffiths Age: 72 years : 1950 Gender: Female Ht: 62 in Wt: 225 lbs BSA: 2.17 m2 HR: 79 bpm Technical Quality: Fair Exam Date: 12/22/2022 8:16 AM Exam Location: [facility] Patient Status: Outpatient Admit Date: 12/22/2022 Staff Ordering Physician: Justo Cordova PA-C Attending Provider: Sandip Brown DO Referring Physician: Tasha MANRIQUE; Exam Type: CA echo doppler color flow Study Info Indications - lower ext swelling Complete two-dimensional, color flow and Doppler transthoracic echocardiogram is performed. Summary 1. Complete two-dimensional, color flow and Doppler transthoracic echocardiogram is performed. 2. Left ventricular chamber dimension is mildly enlarged. 3. Left ventricular systolic function is normal, estimated at 55-60%. 4. There is mildly increased left ventricular wall thickness. 5. The left ventricular diastolic function is grade I diastolic dysfunction. 6. E/e' 7 is not elevated. 7. No pulmonary hypertension, estimated pulmonary arterial systolic pressure is 33 mmHg. 8. There is trivial pericardial effusion. Left Ventricle E/e' 7 is not elevated. Left ventricular chamber dimension is mildly enlarged. Left ventricular systolic function is normal, estimated at 55-60%. There is mildly increased left ventricular wall thickness. The left ventricular diastolic function is grade I diastolic dysfunction. Right Ventricle Right ventricular systolic function is normal and with normal TAPSE 2.5 cm. Right ventricular chamber dimension is normal. Left Atria Left atrial chamber dimension is normal. Right Atria Right atrial chamber dimension is normal. Aortic Valve The aortic valve is trileaflet. There is no aortic valve stenosis. There is no aortic valve regurgitation. Pulmonic Valve There is no pulmonic regurgitation. Mitral Valve There is no mitral valve stenosis. There is no mitral valve regurgitation. Tricuspid Valve There is no tricuspid valve regurgitation. No pulmonary hypertension, estimated pulmonary arterial systolic pressure is 33 mmHg. Pericardium/Pleural There is trivial pericardial effusion. Inferior Vena Cava Normal inferior vena cava with >50% collapse upon inspiration consistent with normal right atrial pressure, 5 mmHg. Aorta The aortic root size at the sinus of Valsalva is normal. Left Ventricular Outflow Tract Name Value Normal LVOT 2D LVOT Diameter 2.1 cm LVOT Doppler LVOT Peak Gradient 3 mmHg LVOT Mean Gradient 2 mmHg LVOT VTI 29 cm LVOT VTI/AV VTI Ratio 0.9 LVOT Stroke Volume 100 ml LVOT CO 5.4 l/min LVOT CI 2.5 l/min/m2 Pulmonic Valve Name Value Normal RVOT Doppler RVOT Peak Gradient 1 mmHg PV Doppler ----
== END 2022-12-22 07:40 | disposition home or self-care (01) ==
LOC: ANHCARD 07:41
PROVIDERS: PCP Internal Medicine; Visit Provider Internal Medicine
DX: M79.89 Other specified soft tissue disorders (principal); R60.9 Edema, unspecified; I10 Essential (primary) hypertension
CPT/HCPCS: 93306

== ENCOUNTER 2024-12-23 12:47 | Outpatient (CLI) | payer MEDICARE, BC, SELFPAY ==
--- OUTSIDE RECORDS SUMMARY | 2024-12-23 12:50 | XMS_ITS | Clinical Summary ---
Author Organization [facility] Address [address] [place] [id number] Phone Care Team Providers Care Hand Weaver Name Role Phone Sandip Borwn MD Primary Care Provider [phone] Thanh Soto MD Unavailable [phone] Allergies Active Allergy Reactions Criticality Noted Date Comments Sulfasalazine Hives Medium 03/04/2013 Medications aspirin (ASPIRIN LOW DOSE) 81 mg tablet Take by mouth daily. 01/25/2017 Active bisoprolol-hydro CHLOROthiazide (ZIAC) 10-6.25 mg per tabletIndication s:hypertension Take 1 tablet by mouth. Active cyclobenzaprine (FLEXERIL) 10 mg tablet Take by mouth. 11/27/2016 Active ibuprofen (ADVIL,MOTRIN) 800 mg tablet Take by mouth every 12 hours. 10/12/2016 Active lisinopril (PRINIVIL,ZESTRI L) 40 mg tablet 02/26/2017 Act mary omeprazole (PriLOSEC) 20 mg capsule Take 20 mg by mouth. Active venlafaxine (EFFEXOR) 75 mg tablet Take 75 mg by mouth 2 (two) times a day Active fluticasone propionate (FLONASE) 50 mcg/actuation nasal spray 02/02/2020 Active HYDROcodone-acet aminophen (NORCO) 5-325 mg per tablet 02/03/2020 Active leflunomide (ARAVA) 20 mg tabletIndication s:autoimmune disease Take 1 tablet (20 mg total) by mouth daily 90 tablet 08/19/2020 Active hydrOXYchloroQUI NE (PLAQUENIL) 200 mg tabletIndication s:Rheumatoid Arthritis Take 1 tablet (200 mg total) by mouth 2 (two) times a day 180 tablet 12/12/2020 Active Active Problems Problem Noted Date Diagnosed Date Encounter for medication monitoring 09/16/2019 Assessment & Plan (02/09/2020 9:44 AM WOOD PATTERN MAKER): Hepatitis negative 2016 Continue routine lab monitoring Maintain routine eye exams throughout the duration of taking hydroxychloroquine Assessment & Plan (11/24/2019 11:22 AM CDT): Hepatitis negative 2016 Continue routine lab monitoring Maintain routine eye exams throughout the duration of taking hydroxychloroquine Right hip pain 04/09/2019 Assessment & Plan (04/09/2019 4:50 PM WOOD PATTERN MAKER): Pt complains of R hip pain which is felt laterally. Notes prior h/o trochanteric bursitis many years ago. She is ttp overlying the greater trochanter, no pain with int/ext rotation. Suspect pain 2/2 trochanteric bursitis/tendonitis and recommend trial of exercises, hand out provided. Discussed that steroid injections can be tried but will avoid this as able. Monitor response to exercises. Osteoarthritis of multiple joints 04/09/2019 Assessment & Plan (04/09/2019 4:51 PM WOOD PATTERN MAKER): Known OA bilateral knees. She received hyaluronic injections with ortho in the past with some relief. Unfortunately PT is inaccessible at present due to limited transportation. Will provide handout reviewing knee exercises which pt is interested in trying. Chronic low back pain 04/09/2019 Assessment & Plan (04/09/2019 4:52 PM WOOD PATTERN MAKER): Chronic low back pain with known spinal stenosis. Previously underwent injections and a prior surgery. Aquatic therapy provided the best relief, last tried 2-3 years ago, but is inaccessible at present due to transportation issues. She was not interested in further surgery. Will reconsider PT again as able. Rash 12/29/2018 Assessment & Plan (12/29/2018 3:00 PM CDT): Intermittent erythematous and pruritic rash which typically flares when she becomes hot/sweaty. She has tried a couple topical remedies with transient relief. She will follow up with PCP/derm. Rheumatoid arthritis involvi ng multiple sites with positive rheumatoid factor 03/11/2017 Overview (09/24/2019): Pain mainly in bilat knees and is worse with activity consistent with OA. Has responded well to hyaluronic acid injections per ortho. RF 67 (12/2016) RF 77 (03/2017) RF 54 (01/31/18) US right hand/wrist (03/20/17): Mild/moderate synovitis with effusions, synovial thickening on examination. Findings greatest in the long view of the wrist with synovial thickening and a grade 2 effusion. A grade 2 effusion also seen in the radial/scaphoid joint. A grade 2 effusion and synovial thickening seen in the dorsal 2nd MCP joint. An enlarged median nerve is identified US right hand/wrist (06/04/18): Mild/moderate effusions and power doppler on examination which will have to be correlated clinically. Grade 2 effusion in the radial/scaphoid joint and 2nd MCP joint. Grade 1 effusion and grade 1 power doppler in the long view of the wrist. Grade 1 effusions in the 3rd-5th MCP and 2nd PIP joints. An enlarged median nerve is identified. Moderate synovial thickening in the wrist and 3rd MCP joint. Mild synovial thickening in the 2nd and 4th MCP and 3rd PIP joints. In comparison to her most recent US of the right hand/wrist from 03/20/17, there has been little change in her inflammatory process other than development of slight effusions in her 3rd-5th MCP joints. US right hand/wrist (09/23/19): Mild/moderate effusions and power doppler on examination which will have to be correlated clinically. Moderate synovial thickening in the 3rd MCP joint, unchanged from previous US. Grade 2 effusion in the 2nd PIP joint. Grade 1 effusion and grade 1 power doppler in the wrist and 2nd and 4thMCP joints. Grade 1 power doppler in the 3rd MCP joint. Grade 1 effusion in the 5th MCP joint. An enlarged median nerve is identified at 0.15 cm2. There is a hyperechoic area that is not attached to bone or joint with surrounding fluid just above the 2nd proximal phalanx of unknown significance. On leflunomide Not on MTX as she is concerned about potential adverse effects. Assessment & Plan (02/09/2020 3:57 PM WOOD PATTERN MAKER): Repeat hand ultrasound in August showed ongoing mild/moderate inflammatory changes and so hydroxychloroquine 200 mg bid was added. Initially she reported some improvements with decreased 'puffiness' in her hands, at this time she feels uncertain as to whether there has been any benefit. She does wish to continue this regimen and allow more time for effect before considering any changes. May consider repeat hand ultrasound in the future to help assess treatment response. For now, will continue combination therapy with leflunomide 20 mg daily and hydroxychloroquine 200 mg bid. Labs today as below. Plan for follow up in 3 months or sooner as needed. Assessment & Plan (11/24/2019 3:02 PM CDT): Repeat hand ultrasound in August showed ongoing mild/moderate inflammatory changes and so hydroxychloroquine 200 mg bid was added. She does report some improvements since last visit. Will continue combination therapy with leflunomide 20 mg daily and hydroxychloroquine 200 mg bid and allow more time for effect. Labs today as below. Plan for follow up in 3 months or sooner as needed. Assessment & Plan (09/16/2019 2:19 PM CDT): Moderate cdai. She has now been on leflunomide for just shy of 1 year. Unfortunately, she reports increasing hand pain in the last few months, worse overnight, denies significant AM symptoms/stiffness. At this time, will obtain repeat hand ultrasound to reassess disease activity and to help direct further treatment options. Follow up timing to be determined pending ultrasound results. Labs today as below. Assessment & Plan (04/09/2019 4:54 PM WOOD PATTERN MAKER): Is noted that previous rheumatoid factor had been elevated at 67 followed by 77 and now 54 when last checked in January 2018. Repeat ultrasound of the right hand and wrist did reveal ongoing mild to moderate inflammatory changes. Based on this rheumatoid arthritis favored. On leflunomide 20 mg daily with some improvement in her joint complaints, two swollen joints by exam today, will continue and allow more time for effect. Will obtain labs today as below. Follow up in 3 months or sooner as needed. Assessment & Plan (12/29/2018 2:59 PM CDT): Is noted that previous rheumatoid factor had been elevated at 67 followed by 77 and now 54 when last checked in January 2018. Repeat ultrasound of the right hand and wrist did reveal ongoing mild to moderate inflammatory changes. Based on this rheumatoid arthritis favored. On leflunomide 20 mg daily for the last month, she has had increased fatigue and some nausea in the last month of uncertain etiology; she wishes to continue leflunomide at this time and allow more time for effect. Will obtain labs today as below. Follow up in 3 months or sooner as needed. Assessment & Plan (11/25/2018 2:45 PM CDT): Is noted that previous rheumatoid factor had been elevated at 67 followed by 77 and now 54 when last checked in January 2018. Repeat ultrasound of the right hand and wrist did reveal ongoing mild to moderate inflammatory changes. Based on this rheumatoid arthritis favored. Tolerating leflunomide 10 mg daily, will obtain labs today as below. Increase leflunomide to 20 mg po daily and follow up in 4 weeks or sooner as needed. Assessment & Plan (10/16/2018 4:21 PM CDT): Is noted that previous rheumatoid factor had been elevated at 67 followed by 77 and now 54 when last checked in January 2018. Repeat ultrasound of the right hand and wrist did reveal ongoing mild to moderate inflammatory changes. Based on this rheumatoid arthritis was suspected, previously discussed treatment options at her last visit and due to increased joint complaints she was agreeable to begin methotrexate. Ultimately, it was not started as she heard horror stories that were attributed to methotrexate use at the [facility]. Discussed the use of leflunomide starting at 10 mg daily. Reviewed potential adverse effects, including diarrhea, and need for routine lab monitoring. Will plan for follow up in 4 weeks to reassess with repeat labs at that time. Assessment & Plan (07/31/2018 2:39 PM CDT): Since last visit has developed pain in her MCPs and toes which is keeping her awake at night at times. She also has some pain in her knees which is worse with activity consistent with osteoarthritis. She does follow with ortho for this, is currently overdue for follow up. Is noted that previous rheumatoid factor had been elevated at 67 followed by 77 and now 54 when last checked in January 2018. Repeat ultrasound of the right hand and wrist did reveal ongoing mild to moderate inflammatory changes. Based on this rheumatoid arthritis was suspected, previously discussed treatment options at her last visit although she felt so well she wanted to defer any specific treatment. However, now as she has had increasing joint complaints she is amenable to treatment. At this time will initiate treatment with methotrexate 12.5 mg po weekly with folic acid 1 mg daily. Reviewed potential adverse effects and need for routine lab monitoring. Will plan for follow up in 4 weeks to reassess with repeat labs at that time. Assessment & Plan (01/31/2018 2:59 PM CDT): She has more discomfort than pain in the MCP and PIP joints. She also has some pain in her knees which is worse with activity consistent with osteoarthritis. She does follow with ortho this. Is noted that previous rheumatoid factor had been elevated at 67 followed by 77 when last checked in March of 2017. Previous ultrasound of the right hand and wrist did reveal mild to moderate inflammatory changes. Based on this rheumatoid arthritis was suspected and I had discussed with her treatment options at her last visit although she felt so well she wanted to defer any specific treatment. She does appear to have some mild synovitis over the 2nd and 3rd MCP joints of the hands on exam although no significant tenderness. She still reports she feels fairly well and wants to try to defer any medications if possible. Will repeat serology as below. Will repeat ultrasound of the right hand and wrist to evaluate and compare her inflammatory changes. If the ultrasound does show progression of inflammatory changes I did inform her I would recommend starting a disease modifying antirheumatic drug for rheumatoid arthritis. If there is little change she would prefer to avoid specific medications at this time. Will contact the patient over the phone regarding the results of the serology and ultrasound. Follow-up in 6 months or sooner if a DMARD is started. Assessment & Plan (03/22/2017 3:44 PM WOOD PATTERN MAKER): Pain mainly in bilat knees and is worse with activity consistent with OA. Has responded well to hyaluronic acid injections per ortho. Has no other joint complaints concerning for RA or other inflammatory arthritis. Has chronic back pain controlled with norco as needed. Assessment & Plan (03/11/2017 1:39 PM WOOD PATTERN MAKER): Has intermittent pain in the knees the most although this has improved greatly with bilat hylauronic acid injections done last may and still is effective. Also with occasional pain in the hands, more so in CMC joints and I suspect is from OA. Has no other sig joint complaints. Has positive RF at 67.9 per labs in Oct although at this time I see no obvious clinical evidence of RA although this remains possible with the elevated RF which is higher than expected for a normal variant or false positive. Will obtain labs as below. Obtain US right hand/wrist to evaluate for inflammatory changes. F/u 2 weeks. Abnormal laboratory test result 03/11/2017 Overview (07/30/2018): RF 67.9 (12/2016) RF 77 (03/11/17) RF 54 (01/31/18) Assessment & Plan (07/30/2018 9:28 AM CDT): RF 67 per labs in December 2016, repeat was 77 in March 2017, recheck last January showed that it remained elevated at 54. She also had a mildly elevated ESR of 39. Assessment & Plan (01/31/2018 2:58 PM CDT): RF 67 per labs in December 2016, repeat was 77 in March 2017. Will recheck serology. Assessment & Plan (03/22/2017 3:40 PM WOOD PATTERN MAKER): RF initially 67.9 per labs in Dec. Most recent RF 77. Has no joint complaints although ultrasound of right hand/wrist did reveal mild/moderate inflammatory changes. Has mild fullness over mcp joints on exam although no joint tenderness and pt feels great in general. I discussed starting a dmard for presumed RA although as she feels so well she does not want to start any specific meds. Will follow clinically and repeat labs and ultrasound in 6 months. If ultrasound reveals progression of the inflammatory process I would recommend starting MTX vs HCQ. Assessment & Plan (03/11/2017 1:40 PM WOOD PATTERN MAKER): RF 67.9 per labs from 01/18/17. Does not look like RA clinically although with high value may be early or mild disease. Does have dry mouth and cross reactivity to sjogren's antibodies possible as is hep C. Social History Tobacco Use Types Packs/Day Years Used Date Smoking Tobacco: Never Assessed Comments Unknown Sex and Gender Information Value Date Recorded Sex Assigned at Not on file Legal Sex Female 10:10 AM WOOD PATTERN MAKER Gender Identity Not on file Sexual Orientation Not on file Obstetrics History Last Filed Vital Signs Vital Sign Reading Time Taken Comments Blood Pressure 136/82 02/09/2020 3:51 PM WOOD PATTERN MAKER Pulse 85 04/09/2019 2:32 PM WOOD PATTERN MAKER Temperature 36.4 C (97.5 F) 02/09/2020 3:51 PM WOOD PATTERN MAKER Respiratory Rate - - Oxygen Saturation - - Inhaled Oxygen Concentration - - Weight 110.2 kg (243 lb) 02/09/2020 3:51 PM WOOD PATTERN MAKER Height 157.5 cm (5' 2) 07/31/2018 1:44 PM CDT Body Mass Index 44.45 07/31/2018 1:44 PM CDT Plan of Treatment Not on file Insurance MEDICARE [facility] Address: [facility] [id number] [place] [address] [employer] Member Subscriber Plan / Payer (Ef fective 2015-Present) Name:Divina Giron Relation to Subscriber:Spouse Name:KATIA GIRON Date of :1950 (Home) Address: [address] [place] [address] Payer ID:[id number] (NAIC) Group ID:[id number] Type:HEALTHCARE/EXCHANGE Address: [address] [place] [id number] Care Teams Hand Weaver Relationship Specialty Start Date End Date Sandip Brown MD [address] [place] [address] PCP - General Internal Medicine 01/30/17 Thanh Soto MD [address] [place] [address] Rheumatology 02/25/17
--- OUTSIDE RECORDS SUMMARY | 2024-12-23 12:50 | XMS_ITS | Clinical Summary ---
Author Organization [facility] Address [address] [place] [address] Care Team Providers Care Safety Risk Lead Name Role Phone Sandip Brown Primary Care Provider Source Comments [facility],non-owned Affiliates and Associated Physician Practices is amultiple site organization consisting of ambulatory clinics and [place]in [place] and [place]. This disclosure is being madepursuant to the Care Everywhere program and may not contain all information available regarding this patient. Last updated 17.[facility] Allergies Active Allergy Reactions Criticality Noted Date Comments Sulfa Drugs 03/04/2013 Levocetirizine Dihydrochloride 03/04 Medications * Be aware that medications may not be up to date on this document. Alwaysverify current medications with the patient. bisoprolol - hydrochlorothiazide (ZIAC) 10-6.25 MG tablet Take 1 Tab by mouth once daily. Active lisinopril (PRINIVIL; ZESTRIL) 40 MG tablet Take 40 mg by mouth once daily. Active sertraline (ZOLOFT) 100 MG tablet Take 100 mg by mouth once daily. Active omeprazole (PRILOSEC) 20 MG capsule Take 20 mg by mouth daily before breakfast. Active hydrocodone-acetaminoph en 5-500 MG tablet Take 1 Tab by mouth every 4 hours as needed for Pain. 30 Tab 0 03/10/20 13 Active docusate sodium (COLACE) 100 MG capsule Take 1 Cap by mouth 2 times daily. 60 Cap 2 03/10/20 13 Active Immunizations Immunization Administration Dates Next Due PNEUMOCOCCAL PPSV23 03/10/2013 Family History Medical History Relation Name Comments Hypertension Brother Hypertension Father Hypertension Mother Relation Name Status Comments Brother Father Mother Social History Tobacco Use Types Packs/Day Years Used Date Smoking Tobacco: Former Cigarettes Q uit: 10/07/2010 Smokeless Tobacco: Never Alcohol Use Standard Drinks/Week Comments No 0 (1 standard drink = 0.6 oz pur e alcohol) Comments No Sex and Gender Information Value Date Recorded Sex Assigned at Not on file Legal Sex Female 5:17 PM CDT Gender Identity Not on file Sexual Orientation Not on file Last Filed Vital Signs Vital Sign Reading Time Taken Comments Blood Pressure 148/58 05/05/2014 3:23 PM RN ONCOLOGY Pulse 125 03/10/2013 6:15 AM RN ONCOLOGY Temperature 36.7 C (98.1 F) 03/10/2013 6:15 AM RN ONCOLOGY Respiratory Rate 18 03/10/2013 6:15 AM RN ONCOLOGY Oxygen Saturation 98% 03/10/2013 6:15 AM RN ONCOLOGY Inhaled Oxygen Concentration 28% 03/09/2013 1 :55 PM RN ONCOLOGY Weight 121.1 kg (267 lb) 05/05/2014 3:23 PM RN ONCOLOGY Height 157.5 cm (5' 2) 05/05/2014 3:23 PM RN ONCOLOGY Body Mass Index 48.83 05/05/2014 3:23 PM RN ONCOLOGY Plan of Treatment Health Maintenance Due Date Last Done Comments BONE DENSITY TESTING 1950 COLOGUARD (AGES 45-75) - COL ON CA SCREENING 1949 COLON MONITORING 1949 COLONOSCOPY - COLON CA SCREENING 1949 CT COLONOGRAPHY - COLON CA SCREENING 1950 Colorectal Cancer Screening 1949 FIT - COLON CA SCREENING 1949 FLEX SIG - COLON CA SCREENING 1949 LIPID TESTING 1949 MAMMOGRAM 1949 HEPATITIS C SCREENING 03/15/1967 DTAP/TDAP/TD VACCINES (1 - Tdap) 1968 ZOSTER VACCINE (1 of 2) 1999 PNEUMOCOCCAL VACCINE 50+ (2 of 2 - PCV) 03/10/2014 03/10/2013 Respiratory Syncytial Virus (RSV) Vaccine Pt: or over 60 yrs (1 - 1-dose 75+ series) 2024 DEPRESSION SCREENING 04/01/2024 COVID-19 VACCINE ( - 2023-2 5 season) 2024 INFLUENZA VACCINE (#1) 2024 HEPATITIS B VACCINE Aged Out No longe r eligible based on patient's age to complete this topic HIB VACCINE Aged Out No longer eligi ble based on patient's age to complete this topic HPV VACCINE Aged Out No longer eligi ble based on patient's age to complete this topic MENINGOCOCCAL (Group B) VACC INE SHARED DECISION-MAKING Aged Out No longer eligibl e based on patient's age to complete this topic MENINGOCOCCAL GROUPS A/C/Y/W VACCINE Aged Out No longer eligible b ased on patient's age to complete this topic Medical Devices Implanted Type Area Home Energy Inspector Device Identifier Shelf Expiration Date Model / Serial / Lot Dev Sys Sgl Obtryx Implanted:Qty: 1 on 03/09/2013 by Marah Florentino Che, MD at [facility] N/A: [facility] [employer] 01/30/2016 [id number] / / [id number] Insurance Advance Directives * FULL RESUSCITATION (Latest Code Status on File) Date Activated Date Inactivated Comments 03/09/2013 1:26 PM 03/10/2013 2:44 PM Care Teams Safety Risk Lead Relationship Specialty Start Date End Date Sandip Brown DO PCP - General Internal Medicine 03/05/13
--- NOTE | 2024-12-23 13:20 | NEURO_ITS ---
Impression: # Complains of left hand numbness. 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 # Ulnar to median cross innervation. # Normal Needle/ EMG exam. Nerve Conduction Studies ?Stim Site NR Peak (ms) P-T Amp (?V) Site1 Site2 Delta-P (ms) Dist (cm) Christo (m/s) Left Median Anti Sensory (2-3nd Digit) Wrist ? 2.5 8.6 Wrist 2-3nd Digit 2.5 14.0 56 Wrist ? 2.9 7.5 Wrist 2-3nd Digit 2.5 14.0 56 Left Radial Anti Sensory (Base 1st Digit) Wrist ? 3.3 17.7 Wrist Base 1st Digit 3.3 0.0 Left Ulnar Anti Sensory (5th Digit) Wrist ? 2.6 11.3 Wrist 5th Digit 2.6 14.0 54 ?Stim Site NR Onset (ms) O-P Amp (mV) Site1 Site2 Delta-0 (ms) Dist (cm) Christo (m/s) Left Median Motor (Abd Poll Brev) Wrist ? 10.5 0.7 Elbow Wrist 5.9 26.0 44 Elbow ? 16.4 0.4 Left Ulnar Motor (Abd Dig Minimi) Wrist ? 3.0 6.9 A Elbow Wrist 6.7 28.0 42 A Elbow ? 9.7 4.5 B Elbow Wrist 4.3 21.0 49 B Elbow ? 7.3 1.8 F Wave Studies ?NR F-Lat (ms) L-R F-Lat (ms) Left Median (Mrkrs) (Abd Poll Brev) ? 30.88 Left Ulnar (Mrkrs) (Abd Dig Min) ? 29.59 Electromyography ?Side Muscle Nerve Root Ins Act Fibs Amp Dur Recrt Comment Left Ext Indicis Radial (Post Int) C7-8 Nml Nml Nml Nml Nml Left 1stDorInt Ulnar C8-T1 Nml Nml Nml Nml Nml Left Ext Digitorum Radial (Post Int) C7-8 Nml Nml Nml Nml Nml Left BrachioRad Radial C5-6 Nml Nml Nml Nml Nml Left PronatorTeres Median C6-7 Nml Nml Nml Nml Nml Left Abd Poll Brev Median C8-T1 Nml Nml Nml Nml Nml Left ABD Dig Min Ulnar C8-T1 Nml Nml Nml Nml Nml Left FlexPolLong Median (Ant Int) C7-8 Nml Nml Nml Nml Nml Left Abd Poll Long Radial (Post Int) C7-8 Nml Nml Nml Nml Nml
== END 2024-12-23 12:48 | disposition home or self-care (01) ==
LOC: ANHNEURO 12:48
PROVIDERS: PCP Internal Medicine; Visit Provider Internal Medicine
DX: R20.2 Paresthesia of skin (principal); G56.22 Lesion of ulnar nerve, left upper limb; G56.02 Carpal tunnel syndrome, left upper limb
CPT/HCPCS: 95886; 95909